=== PATIENT | female | born 1995 | race Hispanic/Latino ===

== ENCOUNTER 2017-07-01 14:41 | Emergency (ER) | payer MEDICAID ==
[2017-07-01 15:21] LABS: APPEARANCE,URINE CLOUDY (CLEAR); BILIRUBIN,URINE NEGATIVE (NEGATIVE); COLOR,URINE YELLOW (YELLOW); GLUCOSE, URINE (UA) NEGATIVE (NEGATIVE); KETONES,URINE NEGATIVE (NEGATIVE); LEUKOCYTE ESTERASE ,URINE TRACE (NEGATIVE); NITRATE,URINE NEGATIVE (NEGATIVE); OCCULT BLOOD,URINE NEGATIVE (NEGATIVE); PROTEIN,URINE NEGATIVE (NEGATIVE); UROBILINOGEN,URINE 0.2 mg/dL (0.2-1.0)
[2017-07-01 15:31] LABS: HCG,QUAL RESULT NEGATIVE (NEGATIVE)
[2017-07-01 16:06] LABS: BACTERIA,URINE Few /HPF (None Seen); RBC,URINE 0-1 /HPF (0-1)
[2017-07-01 16:08] LABS: AMORPHOUS SEDIMENT,UR Moderate /LPF (None Seen); SQUAMOUS EPITHELIAL CELL,UR Rare /HPF (0-2)
[2017-07-01] MEDS ORDERED: CEFTRIAXONE SODIUM 500 MG VIAL ONE (16:16)
[2017-07-01] MEDS ORDERED: LIDOCAINE HCL-MPF 1% 2ML VIAL ONE (16:16)
[2017-07-01] MEDS ORDERED: AZITHROMYCIN 250 MG TABLET PO ONE (16:17)
[2017-07-01] MEDS ORDERED: ONDANSETRON ODT 4 MG TAB ONE (16:17)
== END 2017-07-01 16:54 | disposition home or self-care (01) ==
LOC: EDH 14:41
DX: N39.0 Urinary tract infection, site not specified (principal); R10.30 Lower abdominal pain, unspecified; Z87.891 Personal history of nicotine dependence
CPT/HCPCS: 81001; 81025; 87486; 87797; 96372; 99284; J0696; J3490

== ENCOUNTER 2018-03-13 08:14 | Emergency (ER) | payer OTHER ==
[2018-03-13 09:10] LABS: BASOPHILS % (AUTO) 0.7 % (0.0-5.0); HEMATOCRIT 42.1 % (36-48); LYMPHOCYTES % (AUTO) 19.4 % (21.0-51.0); MEAN CORPUSCULAR HEMOGLOBIN 31.1 pg (27.0-33.0); MEAN CORPUSCULAR HGB CONC 33.3 g/dL (32.0-36.0); MEAN CORPUSCULAR VOLUME 93.4 fL (80-100); MONOCYTES % (AUTO) 6.4 % (3.0-13.0); NEUTROPHILS % (AUTO) 72.5 % (40.0-77.0); NUCLEATED RED BLOOD CELLS 0.1 % (0.0-0.19); PLATELET COUNT (AUTO) 146 K/uL (130-400); RED CELL DISTRIBUTION WIDTH 13.2 % (11.0-15.5); WHITE BLOOD COUNT (AUTO) 8.8 K/uL (4.8-10.8)
[2018-03-13 09:15] LABS: APPEARANCE,URINE Clear (CLEAR); BILIRUBIN,URINE Negative (NEGATIVE); COLOR,URINE Yellow (YELLOW); GLUCOSE, URINE (UA) Negative (NEGATIVE); KETONES,URINE Negative (NEGATIVE); LEUKOCYTE ESTERASE ,URINE Trace (NEGATIVE); NITRATE,URINE Negative (NEGATIVE); OCCULT BLOOD,URINE Negative (NEGATIVE); PROTEIN,URINE Negative (NEGATIVE)
[2018-03-13 09:27] LABS: CREATININE 0.9 mg/dL (0.5-1.5); POTASSIUM 3.7 mmol/L (3.5-5.1)
[2018-03-13 09:37] LABS: ALBUMIN 3.9 g/dL (3.5-5.0); BILIRUBIN,TOTAL 0.4 mg/dL (0.2-1.0); TOTAL PROTEIN, SERUM 7.7 g/dL (6.0-8.3)
[2018-03-13 09:50] LABS: BACTERIA,URINE Few /HPF (None Seen); RBC,URINE 0-1 /HPF (0-1)
== END 2018-03-13 11:03 | disposition home or self-care (01) ==
LOC: EDH 08:14
DX: O26.891 Other specified pregnancy related conditions, first trimester (principal); R10.9 Unspecified abdominal pain; R11.0 Nausea; O99.331 Smoking (tobacco) complicating pregnancy, first trimester; Z3A.01 Less than 8 weeks gestation of pregnancy
CPT/HCPCS: 36415; 80053; 81001; 82150; 83690; 84702; 85025; 87088

== ENCOUNTER 2019-01-30 17:26 | Emergency (ER) | payer OTHER ==
[2019-01-30] MEDS ORDERED: ONDANSETRON ODT 4 MG TAB ONE (17:53)
[2019-01-30 18:15] LABS: APPEARANCE,URINE Clear (CLEAR); BILIRUBIN,URINE Negative (NEGATIVE); COLOR,URINE Yellow (YELLOW); GLUCOSE, URINE (UA) Negative (NEGATIVE); KETONES,URINE Negative (NEGATIVE); LEUKOCYTE ESTERASE ,URINE Moderate (NEGATIVE); NITRATE,URINE Negative (NEGATIVE); OCCULT BLOOD,URINE Small (NEGATIVE); PROTEIN,URINE Trace mg/dL (NEGATIVE)
[2019-01-30 18:17] LABS: HCG,QUAL RESULT NEGATIVE (NEGATIVE)
[2019-01-30 18:36] LABS: BACTERIA,URINE Moderate /HPF (None Seen); MUCUS,URINE Few LPF (None Seen)
== END 2019-01-30 18:48 | disposition home or self-care (01) ==
LOC: EDH 17:26
DX: N39.0 Urinary tract infection, site not specified (principal); Z72.0 Tobacco use
CPT/HCPCS: 81001; 81025

== ENCOUNTER 2019-01-31 19:14 | Inpatient (IN) | payer OTHER ==
[~2019-01-31] VITALS: Ht 160 cm; Wt 54.0 kg
[2019-01-31] MEDS: SODIUM CHLORIDE 0.9% 1000ML 1,000 ML IV SCH (08:00)
[2019-01-31] MEDS ORDERED: SODIUM CHLORIDE 0.9% 1000ML 1,000 ML IV ONE ×3 (19:54→23:55)
[2019-01-31] MEDS ORDERED: CEFTRIAXONE SODIUM 2 GM VIAL ONE (19:54)
[2019-01-31 19:55] LABS: BASOPHILS % (AUTO) 0.1 % (0.0-5.0); HEMATOCRIT 39.1 % (36-48); LYMPHOCYTES % (AUTO) 9.1 % (21.0-51.0); MEAN CORPUSCULAR HEMOGLOBIN 33.1 pg (27.0-33.0); MEAN CORPUSCULAR HGB CONC 34.7 g/dL (32.0-36.0); MEAN CORPUSCULAR VOLUME 95.5 fL (79-99); MONOCYTES % (AUTO) 8.4 % (3.0-13.0); NEUTROPHILS % (AUTO) 82.4 % (40.0-77.0); NUCLEATED RED BLOOD CELLS 0.1 % (0.0-0.19); PLATELET COUNT (AUTO) 152 K/uL (130-400); RED CELL DISTRIBUTION WIDTH 12.4 % (11.0-15.5); WHITE BLOOD COUNT (AUTO) 14.1 K/uL (4.8-10.8)
[2019-01-31 19:59] LABS: APPEARANCE,URINE Clear (CLEAR); BILIRUBIN,URINE Negative (NEGATIVE); COLOR,URINE Yellow (YELLOW); GLUCOSE, URINE (UA) Negative (NEGATIVE); KETONES,URINE >=160 mg/dL (NEGATIVE); LEUKOCYTE ESTERASE ,URINE Moderate (NEGATIVE); NITRATE,URINE Negative (NEGATIVE); OCCULT BLOOD,URINE Moderate (NEGATIVE); PH,URINE 5.5 (5.0-8.0); PROTEIN,URINE Trace mg/dL (NEGATIVE)
[2019-01-31 20:12] LABS: INR 1.07 (0.85-1.15); PARTIAL THROMBOPLASTIN TIME 32.7 SEC (26.3-35.5); PROTHROMBIN TIME 11.2 SEC (9.6-11.6)
[2019-01-31 20:16] LABS: BACTERIA,URINE Moderate /HPF (None Seen); MUCUS,URINE Moderate LPF (None Seen)
[2019-01-31] MEDS ORDERED: IOHEXOL-350 75 ML VIAL IV ONE (20:28)
[2019-01-31 20:35] LABS: CARBON DIOXIDE 25 mmol/L (21-32); CHLORIDE 99 mmol/L (101-111); GLOMERULAR FILTR. RATE CALC 74 mL/min (>60); GLUCOSE,RANDOM 77 mg/dL (70-105); POTASSIUM 3.6 mmol/L (3.5-5.1); SODIUM SERUM 136 mmol/L (136-145); UREA NITROGEN, BLOOD 10 mg/dL (7-18)
[2019-01-31 20:48] LABS: ALANINE AMINOTRANSFERASE 23 U/L (12-78); ALBUMIN 3.7 g/dL (3.5-5.0); ASPARTATE AMINOTRANSFERASE 15 U/L (10-37); BILIRUBIN,TOTAL 0.8 mg/dL (0.2-1.0); CREATINE KINASE, TOTAL 41 U/L (21-232); MYOGLOBIN 25 ng/mL (10-92); TOTAL PROTEIN, SERUM 8.3 g/dL (6.0-8.3); TROPONIN I < 0.04 ng/mL (0.00-0.06)
[2019-01-31] MEDS ORDERED: ACETAMINOPHEN EXTRA STRENGTH 500 MG TABLET ONE (21:14)
[2019-01-31] MEDS ORDERED: LACTULOSE 20 GM/30 ML UDCUP PO PRN (22:00)
[2019-01-31] MEDS ORDERED: ONDANSETRON HCL 4 MG/2 ML VIAL IV PRN (22:00)
[2019-01-31] MEDS: CEFTRIAXONE SODIUM 1 GM IV SCH (22:00)
[2019-01-31] MEDS ORDERED: ACETAMINOPHEN 325 MG TAB PO PRN ×2 (22:00)
[2019-02-01 05:37] LABS: HEMATOCRIT 35.3 % (36-48); MEAN CORPUSCULAR HEMOGLOBIN 33.9 pg (27.0-33.0); MEAN CORPUSCULAR HGB CONC 34.9 g/dL (32.0-36.0); PLATELET COUNT (AUTO) 140 K/uL (130-400); RED BLOOD CELL COUNT(AUTO) 3.63 MIL/uL (4.00-5.50); RED CELL DISTRIBUTION WIDTH 12.6 % (11.0-15.5); WHITE BLOOD COUNT (AUTO) 9.9 K/uL (4.8-10.8)
[2019-02-01] MEDS: SODIUM CHLORIDE 0.9% 1000ML 1,000 ML IV SCH (05:54)
[2019-02-01] MEDS ORDERED: ACETAMINOPHEN 325 MG TAB ONE (05:56)
[2019-02-01 05:58] LABS: CREATININE 0.7 mg/dL (0.5-1.5); POTASSIUM 3.9 mmol/L (3.5-5.1)
[2019-02-01 06:08] LABS: LYMPHOCYTES % (MANUAL) 15 % (22-44); MAN.DIFF COMMENT-IMPRESSION MANUAL DIFFERENTIAL; MONOCYTES % (MANUAL) 11 % (2-9); SEGMENTED NEUTROPHILS % 74 % (40-70)
[2019-02-01 08:10] VITALS: BP 83/50
[2019-02-01] MEDS: FAMOTIDINE 20MG TAB 20 MG TAB PO SCH ×2 (08:57→21:43)
[2019-02-01 12:00] VITALS: BP 82/45
[2019-02-01 16:00] VITALS: BP 96/60
[2019-02-01 20:34] VITALS: BP 94/56
[2019-02-01] MEDS: CEFTRIAXONE SODIUM 1 GM IV SCH (21:43)
[2019-02-01 23:59] VITALS: BP 87/48
--- NOTE | 2019-02-02 03:17 | NUR ---
PT LEFT AMA, PER PATIENT SHE STATES SHE HAS A FAMILY EMERGENCY AND NEEDS TO LEAVE NOW, AGAINST MEDICAL ADVISE PATIENT EDUCATED AND AWARE OF RISKS INVOLVING LEAVING AMA. INCLUDING . PATIENT EDUCATED ON THIS. PATIENT STILL DECIDES TO LEAVE "AMA" . PT ENCOURAGED TO FOLLOW UP WITH PER PCP. IV REMOVED, CATHETER INTACT Addendum: 02/02/19 at 0319 by STEPHANIE ROTH RN THIS HAPPENED AT 01:00 02/02/19 SAYRA OLMSTEAD [facility] SUP NOTIFIED
== END 2019-02-02 01:08 | disposition left against medical advice (07) | DRG 872 ==
LOC: EDH 19:14 → EDHIP 19:15 → 4DH 02-01 08:10
PROVIDERS: ADMIT Internal Medicine; ATTEND Internal Medicine
DX: A41.9 Sepsis, unspecified organism (principal); N12 Tubulo-interstitial nephritis, not specified as acute or chronic; K59.00 Constipation, unspecified; K76.0 Fatty (change of) liver, not elsewhere classified; N83.201 Unspecified ovarian cyst, right side; N83.202 Unspecified ovarian cyst, left side; Q63.1 Lobulated, fused and horseshoe kidney
CPT/HCPCS: 36415; 71045; 74177; 76830; 80048; 80053; 81001; 81025; 82550; 83605; 83874; 84145; 84484; 85025; 85610; 85730; 87040; 87088; 87804; 93005; 99291; G0378; J0696; J7030; Q9967

== ENCOUNTER 2019-04-01 00:52 | Emergency (ER) | payer OTHER ==
[2019-04-01 01:24] LABS: APPEARANCE,URINE Cloudy (CLEAR); BILIRUBIN,URINE Negative (NEGATIVE); COLOR,URINE Yellow (YELLOW); GLUCOSE, URINE (UA) Negative (NEGATIVE); KETONES,URINE Negative (NEGATIVE); LEUKOCYTE ESTERASE ,URINE Large (NEGATIVE); NITRATE,URINE Negative (NEGATIVE); OCCULT BLOOD,URINE Trace (NEGATIVE); PROTEIN,URINE Negative (NEGATIVE); UROBILINOGEN,URINE 0.2 mg/dL (0.2-1.0)
[2019-04-01 01:27] LABS: HCG,QUAL RESULT NEGATIVE (NEGATIVE)
[2019-04-01 01:31] LABS: BACTERIA,URINE None Seen /HPF (None Seen); RBC,URINE 0-1 /HPF (0-1); SQUAMOUS EPITHELIAL CELL,UR Moderate /HPF (0-2)
== END 2019-04-01 01:51 | disposition left against medical advice (07) ==
LOC: EDH 00:52
DX: R10.30 Lower abdominal pain, unspecified (principal); R51 Headache; R11.0 Nausea; R06.02 Shortness of breath; Z72.0 Tobacco use
CPT/HCPCS: 81001; 81025

== ENCOUNTER 2020-01-26 17:59 | Emergency (ER) | payer OTHER ==
[2020-01-26] MEDS ORDERED: CEPHALEXIN 500 MG CAPSULE ONE (18:33)
[2020-01-26] MEDS ORDERED: TETANUS/DIPHTHERIA TOXOID [ADULT] 0.5 ML VIAL IM ONE (18:33)
== END 2020-01-26 18:53 | disposition home or self-care (01) ==
LOC: EDH 17:59
DX: S51.811A Laceration without foreign body of right forearm, initial encounter (principal); X58.XXXA Exposure to other specified factors, initial encounter; Y93.89 Activity, other specified; Y92.89 Other specified places as the place of occurrence of the external cause; Y99.8 Other external cause status
CPT/HCPCS: 90471; 90714

== ENCOUNTER 2020-06-28 21:19 | Emergency (ER) | payer OTHER ==
[2020-06-28] MEDS ORDERED: ACETAMINOPHEN 500 MG TABLET ONE (21:54)
[2020-06-28 22:05] LABS: HCG,QUAL RESULT POSITIVE (NEGATIVE)
[2020-06-28 22:09] LABS: APPEARANCE,URINE Cloudy (CLEAR); BILIRUBIN,URINE Small (NEGATIVE); COLOR,URINE Dark Yellow (YELLOW); GLUCOSE, URINE (UA) Negative (NEGATIVE); KETONES,URINE 15 mg/dL (NEGATIVE); LEUKOCYTE ESTERASE ,URINE Moderate (NEGATIVE); NITRATE,URINE Negative (NEGATIVE); OCCULT BLOOD,URINE Large (NEGATIVE); PH,URINE 5.5 (5.0-8.0); PROTEIN,URINE POS 1+ mg/dL (NEGATIVE)
[2020-06-28 22:16] LABS: BASOPHILS % (AUTO) 0.2 % (0.0-5.0); EOSINOPHILS % (AUTO) 0.2 % (0.0-8.0); HEMATOCRIT 37.2 % (36-48); LYMPHOCYTES % (AUTO) 5.3 % (21.0-51.0); MEAN CORPUSCULAR HEMOGLOBIN 33.9 pg (27.0-33.0); MEAN CORPUSCULAR HGB CONC 35.2 g/dL (32.0-36.0); MEAN CORPUSCULAR VOLUME 96.4 fL (79-99); NEUTROPHILS % (AUTO) 88.8 % (40.0-77.0); PLATELET COUNT (AUTO) 118 K/uL (130-400); RED BLOOD CELL COUNT(AUTO) 3.86 MIL/uL (4.00-5.50); RED CELL DISTRIBUTION WIDTH 11.7 % (11.0-15.5); WHITE BLOOD COUNT (AUTO) 9.8 K/uL (4.8-10.8)
[2020-06-28 22:19] LABS: BACTERIA,URINE Few /HPF (None Seen)
[2020-06-28 22:31] LABS: CREATININE 0.8 mg/dL (0.5-1.5); POTASSIUM 3.2 mmol/L (3.5-5.1)
[2020-06-28 22:36] LABS: ALBUMIN 3.5 g/dL (3.5-5.0); BILIRUBIN,TOTAL 0.5 mg/dL (0.2-1.0); TOTAL PROTEIN, SERUM 7.1 g/dL (6.0-8.3)
[2020-06-28] MEDS ORDERED: CEFTRIAXONE 1G VIAL ONE (23:39)
[2020-07-04 11:12] LABS: CHLAMYDIA DNA N.A.AMPLIFY Positive (Negative)
== END 2020-06-29 01:13 | disposition home or self-care (01) ==
LOC: EDH 21:19
DX: O23.40 Unspecified infection of urinary tract in pregnancy, unspecified trimester (principal); O03.9 Complete or unspecified spontaneous abortion without complication; Z3A.00 Weeks of gestation of pregnancy not specified; Z72.0 Tobacco use
CPT/HCPCS: 36415; 76801; 80053; 81001; 81025; 83605; 84145; 84702; 85025; 86701; 87040 ×2; 87088; 87210; 87390; 87486; 87797; 96361; 96365; 99284; J0696

== ENCOUNTER 2020-07-01 18:49 | Emergency (ER) | payer OTHER | END 2020-07-01 20:11 | disposition home or self-care (01) | LOC: EDH 18:49 | DX: O03.4 Incomplete spontaneous abortion without complication (principal); Z72.0 Tobacco use | CPT/HCPCS: 36415; 84702 ==

== ENCOUNTER 2021-09-11 18:16 | Emergency (ER) | payer OTHER ==
[~2021-09-11] VITALS: Ht 160 cm; Wt 49.9 kg
[2021-09-11 18:50] LABS: APPEARANCE,URINE SL CLOUDY (CLEAR); BILIRUBIN,URINE NEGATIVE (NEGATIVE); COLOR,URINE YELLOW (YELLOW); GLUCOSE, URINE (UA) NEGATIVE (NEGATIVE); KETONES,URINE NEGATIVE (NEGATIVE); LEUKOCYTE ESTERASE ,URINE TRACE (NEGATIVE); NITRATE,URINE NEGATIVE (NEGATIVE); OCCULT BLOOD,URINE TRACE-INTACT (NEGATIVE); PROTEIN,URINE NEGATIVE (NEGATIVE); UROBILINOGEN,URINE 0.2 mg/dL (0.2-1.0)
[2021-09-11] MEDS ORDERED: ACETAMINOPHEN 500 MG TABLET PO ONE (19:00)
[2021-09-11] MEDS ORDERED: GUAIFENESIN-CODEINE 5 ML SYRUP PO ONE (19:00)
[2021-09-11 19:03] LABS: HCG,QUAL RESULT NEGATIVE (NEGATIVE)
[2021-09-11 19:31] LABS: BACTERIA,URINE Few /HPF (None Seen); SQUAMOUS EPITHELIAL CELL,UR Few /HPF (0-2)
[2021-09-11] MEDS ORDERED: D-ME1POW16 PO (19:38)
[2021-09-11] MEDS ORDERED: CEPH500B PO (19:38)
[2021-09-11] MEDS ORDERED: CEFTRIAXONE 1G VIAL IM ONE (20:00)
[2021-09-11] MEDS ORDERED: CEFTRIAXONE 1G VIAL ONE (20:00)
[2021-09-11 20:11] VITALS: BP 128/64
== END 2021-09-11 20:16 | disposition home or self-care (01) ==
LOC: EDH 18:16
DX: J06.9 Acute upper respiratory infection, unspecified (principal); N39.0 Urinary tract infection, site not specified; Z20.822 Contact with and (suspected) exposure to COVID-19
CPT/HCPCS: 71045; 81001; 81025; 87077; 87088; 87186; 87635; 87804 ×2; 96372; 99284; C9803; J0696

== ENCOUNTER 2021-11-07 23:41 | Emergency (ER) | payer OTHER ==
[~2021-11-07] VITALS: Ht 160 cm; Wt 3.0 kg
[~2021-11-07 23:41] MED LIST: CEPH500B PO; D-ME1POW16 PO
[2021-11-08 00:16] LABS: APPEARANCE,URINE CLEAR (CLEAR); BILIRUBIN,URINE NEGATIVE (NEGATIVE); COLOR,URINE YELLOW (YELLOW); GLUCOSE, URINE (UA) NEGATIVE (NEGATIVE); KETONES,URINE NEGATIVE (NEGATIVE); LEUKOCYTE ESTERASE ,URINE TRACE (NEGATIVE); NITRATE,URINE NEGATIVE (NEGATIVE); OCCULT BLOOD,URINE NEGATIVE (NEGATIVE); PH,URINE 6.5 (5.0-8.0); PROTEIN,URINE NEGATIVE (NEGATIVE); UROBILINOGEN,URINE 0.2 mg/dL (0.2-1.0)
[2021-11-08 00:18] LABS: HCG,QUALITATIVE URINE POSITIVE (NEGATIVE)
[2021-11-08] MEDS ORDERED: ACETAMINOPHEN 500 MG TABLET PO ONE (00:30)
[2021-11-08 00:43] LABS: BACTERIA,URINE Rare /HPF (None Seen); RBC,URINE 0-1 /HPF (0-1); SQUAMOUS EPITHELIAL CELL,UR 0-2 /HPF (0-2)
[2021-11-08 00:54] LABS: CREATININE 0.8 mg/dL (0.5-1.5); POTASSIUM 3.1 mmol/L (3.5-5.1)
[2021-11-08 01:00] LABS: BASOPHILS % (AUTO) 0.5 % (0.0-5.0); EOSINOPHILS % (AUTO) 2.1 % (0.0-8.0); HEMATOCRIT 38.4 % (36-48); LYMPHOCYTES % (AUTO) 25.2 % (21.0-51.0); MEAN CORPUSCULAR HEMOGLOBIN 34.3 pg (27.0-33.0); MEAN CORPUSCULAR HGB CONC 35.4 g/dL (32.0-36.0); MONOCYTES % (AUTO) 7.4 % (3.0-13.0); NEUTROPHILS % (AUTO) 64.7 % (40.0-77.0); PLATELET COUNT (AUTO) 124 K/uL (130-400); RED BLOOD CELL COUNT(AUTO) 3.96 MIL/uL (4.00-5.50); RED CELL DISTRIBUTION WIDTH 11.7 % (11.0-15.5); WHITE BLOOD COUNT (AUTO) 8.5 K/uL (4.8-10.8)
[2021-11-08 01:05] LABS: ALBUMIN 3.6 g/dL (3.5-5.0); TOTAL PROTEIN, SERUM 6.8 g/dL (6.0-8.3)
[2021-11-08] MEDS ORDERED: KCL 20 MEQ ERTAB PO ONE (01:30)
[2021-11-08] MEDS ORDERED: PREN1CAP37 PO (01:43)
[2021-11-08 01:56] VITALS: BP 104/57
== END 2021-11-08 01:59 | disposition home or self-care (01) ==
LOC: EDH 23:41
DX: O99.111 Other diseases of the blood and blood-forming organs and certain disorders involving the immune mechanism complicating pregnancy, first trimester (principal); D69.6 Thrombocytopenia, unspecified; O99.891 Other specified diseases and conditions complicating pregnancy; E87.6 Hypokalemia; R51.9 Headache, unspecified; M54.50 Low back pain, unspecified; Z3A.01 Less than 8 weeks gestation of pregnancy; Z20.822 Contact with and (suspected) exposure to COVID-19
CPT/HCPCS: 99283; 87635; 80053; 84702; 85025; 81001; 81025; 36415; C9803

== ENCOUNTER → 2022-12-30 | Emergency (ER) | payer MEDICAID ==
[~2022-12-30] VITALS: Ht 160 cm; Wt 54.9 kg
[~2022-12-30] MED LIST changes: +PREN1CAP37 PO
[2022-12-31] VITALS: BP 108/62; PULSE 95; RESP 18
== END ==
LOC: EDH 23:58
DX: R10.9 Unspecified abdominal pain (principal); Z53.21 Procedure and treatment not carried out due to patient leaving prior to being seen by health care provider
CPT/HCPCS: 99281

== ENCOUNTER 2023-01-19 11:53 | Emergency (ER) | payer MEDICAID ==
[~2023-01-19] VITALS: Ht 160 cm; Wt 55.8 kg
[2023-01-19 12:18] LABS: BASOPHILS # (AUTO) 0.05 K/uL (0.00-0.20); BASOPHILS % (AUTO) 0.4 % (0.0-5.0); EOSINOPHILS # (AUTO) 0.13 K/uL (0.00-0.70); HEMATOCRIT 42.9 % (36-48); IMMATURE GRANULOCYTE ABSOLUTE 0.05 K/uL (0-1); LYMPHOCYTES # (AUTO) 2.1 K/uL (1.0-4.8); LYMPHOCYTES % (AUTO) 16.3 % (21.0-51.0); MEAN CORPUSCULAR HEMOGLOBIN 31.8 pg (27.0-33.0); MEAN CORPUSCULAR HGB CONC 34.3 g/dL (32.0-36.0); MEAN CORPUSCULAR VOLUME 92.9 fL (79-99); MONOCYTES # (AUTO) 0.6 K/uL (0.1-1.0); MONOCYTES % (AUTO) 4.3 % (3.0-13.0); NEUTROPHILS % (AUTO) 77.6 % (40.0-77.0); PLATELET COUNT (AUTO) 176 K/uL (130-400); RED BLOOD CELL COUNT(AUTO) 4.62 MIL/uL (4.00-5.50); WHITE BLOOD COUNT (AUTO) 12.9 K/uL (4.8-10.8)
[2023-01-19 12:46] LABS: CREATININE 0.8 mg/dL (0.5-1.5); POTASSIUM 3.2 mmol/L (3.5-5.1)
[2023-01-19 12:51] LABS: HCG,QUALITATIVE URINE NEGATIVE (NEGATIVE)
[2023-01-19 12:52] LABS: APPEARANCE,URINE SL CLOUDY (CLEAR); BILIRUBIN,URINE SMALL mg/dL (NEGATIVE); COLOR,URINE YELLOW (YELLOW); GLUCOSE, URINE (UA) NEGATIVE (NEGATIVE); KETONES,URINE NEGATIVE (NEGATIVE); LEUKOCYTE ESTERASE ,URINE TRACE Leu/uL (NEGATIVE); NITRATE,URINE NEGATIVE (NEGATIVE); OCCULT BLOOD,URINE NEGATIVE (NEGATIVE); PH,URINE 5.5 (5.0-8.0); PROTEIN,URINE TRACE mg/dL (NEGATIVE); UROBILINOGEN,URINE 0.2 mg/dL (0.2-1.0)
[2023-01-19 13:00] LABS: ALBUMIN 4.1 g/dL (3.5-5.0); BILIRUBIN,TOTAL 0.5 mg/dL (0.2-1.0); TOTAL PROTEIN, SERUM 7.9 g/dL (6.0-8.3)
[2023-01-19 13:03] LABS: ADD UA MICROSCOPIC YES
[2023-01-19 13:05] LABS: BACTERIA,URINE Moderate /HPF (None Seen); SQUAMOUS EPITHELIAL CELL,UR Few /HPF (0-2); WBC,URINE 0-1 /HPF (0-1)
[2023-01-19] MEDS ORDERED: HYOSCYAMINE SULFATE 0.125 MG TAB.SUBL SL ONE (13:30)
[2023-01-19] MEDS ORDERED: ONDANSETRON 4MG INJ IVP ONE (13:30)
[2023-01-19] MEDS ORDERED: KETOROLAC 15MG/ML VIAL (15MG/ML) IV ONE (13:30)
[2023-01-19] MEDS ORDERED: 0.9% NACL 500ML IV.SOLN 500 ML IV ONE (13:30)
[2023-01-19 13:57] VITALS: BP 101/64; PULSE 71; RESP 14; O2SAT 99
[2023-01-19] MEDS ORDERED: KCL 20 MEQ ERTAB PO ONE (14:30)
[2023-01-19] MEDS ORDERED: ONDA4TAB10 PO (14:43)
[2023-01-19] MEDS ORDERED: DIPH1TAB PO (14:43)
== END 2023-01-19 14:50 | disposition home or self-care (01) ==
LOC: EDH 11:53
DX: E87.6 Hypokalemia (principal); A08.4 Viral intestinal infection, unspecified
CPT/HCPCS: 99284; 96374; 96375; 80053; 84703; 83690; 85025; 87088; 81001; 81025; 36415; J2405; J1885

== ENCOUNTER 2023-06-19 20:22 | Emergency (ER) | payer MEDICAID, OTHER ==
[~2023-06-19] VITALS: Ht 160 cm; Wt 56.7 kg
[~2023-06-19 20:22] MED LIST changes: +DIPH1TAB PO; +ONDA4TAB10 PO
[2023-06-19 21:27] LABS: RAPID GROUP A STREP negative (NEGATIVE)
[2023-06-19 21:29] LABS: INFLUENZA TYPE A Negative For Type A (NEGATIVE); INFLUENZA TYPE B Negative For Type B (NEGATIVE)
[2023-06-19 21:37] LABS: SARS-CoV-2, RNA, NAAT NEGATIVE SARS CoV-2 (NEGATIVE)
[2023-06-19 22:02] LABS: APPEARANCE,URINE CLEAR (CLEAR); BILIRUBIN,URINE NEGATIVE (NEGATIVE); COLOR,URINE LIGHT-YELLOW (YELLOW); GLUCOSE, URINE (UA) NEGATIVE (NEGATIVE); KETONES,URINE NEGATIVE (NEGATIVE); LEUKOCYTE ESTERASE ,URINE 75 Leu/uL (NEGATIVE); NITRATE,URINE NEGATIVE (NEGATIVE); OCCULT BLOOD,URINE NEGATIVE (NEGATIVE); PH,URINE 5.5 (5.0-8.0); PROTEIN,URINE NEGATIVE (NEGATIVE); UROBILINOGEN,URINE 0.2 mg/dL (0.2-1.0)
[2023-06-19 22:03] LABS: ADD UA MICROSCOPIC YES
[2023-06-19 22:04] LABS: HCG,QUALITATIVE URINE NEGATIVE (NEGATIVE)
[2023-06-19 22:10] LABS: MUCUS,URINE RARE LPF (None Seen); RBC,URINE 0-1 /HPF (0-1); SQUAMOUS EPITHELIAL CELL,UR RARE /HPF (0-2)
[2023-06-19] MEDS ORDERED: IPRA6S NASAL (23:31)
[2023-06-19] MEDS ORDERED: LEVO5TAB29 PO (23:31)
[2023-06-19] MEDS ORDERED: IBUP-2070 PO (23:31)
[2023-06-19 23:40] VITALS: BP 132/74; PULSE 88; RESP 20; O2SAT 100
== END 2023-06-19 23:42 | disposition home or self-care (01) ==
LOC: EDH 20:22
DX: J32.9 Chronic sinusitis, unspecified (principal); R09.82 Postnasal drip; Z20.822 Contact with and (suspected) exposure to COVID-19; Z79.899 Other long term (current) drug therapy
CPT/HCPCS: 81001; 81025; 87077; 87088; 87186; 87635; 87804; 87880

== ENCOUNTER 2023-10-12 21:03 | Emergency (ER) | payer MEDICAID, OTHER ==
[~2023-10-12] VITALS: Ht 160 cm; Wt 54.4 kg
[~2023-10-12 21:03] MED LIST changes: -CEPH500B PO; -D-ME1POW16 PO; -DIPH1TAB PO; +IBUP-2070 PO; +IPRA6S NASAL; +LEVO5TAB29 PO; -ONDA4TAB10 PO; -PREN1CAP37 PO
[2023-10-12 21:52] LABS: BASOPHILS # (AUTO) 0.04 K/uL (0.00-0.20); BASOPHILS % (AUTO) 0.4 % (0.0-5.0); EOSINOPHILS # (AUTO) 0.13 K/uL (0.00-0.70); EOSINOPHILS % (AUTO) 1.4 % (0.0-8.0); HEMATOCRIT 38.9 % (36-48); IMMATURE GRANULOCYTE ABSOLUTE 0.03 K/uL (0-1); LYMPHOCYTES # (AUTO) 1.7 K/uL (1.0-4.8); MEAN CORPUSCULAR HEMOGLOBIN 32.5 pg (27.0-33.0); MEAN CORPUSCULAR HGB CONC 34.2 g/dL (32.0-36.0); MEAN CORPUSCULAR VOLUME 95.1 fL (79-99); MONOCYTES # (AUTO) 0.6 K/uL (0.1-1.0); NEUTROPHILS # (AUTO) 6.6 K/uL (1.8-7.7); NEUTROPHILS % (AUTO) 71.9 % (40.0-77.0); PLATELET COUNT (AUTO) 151 K/uL (130-400); RED BLOOD CELL COUNT(AUTO) 4.09 MIL/uL (4.00-5.50); RED CELL DISTRIBUTION WIDTH 11.9 % (11.0-15.5); WHITE BLOOD COUNT (AUTO) 9.1 K/uL (4.8-10.8)
[2023-10-12 21:57] LABS: ADD UA MICROSCOPIC YES; APPEARANCE,URINE CLEAR (CLEAR); BILIRUBIN,URINE NEGATIVE (NEGATIVE); COLOR,URINE LIGHT-YELLOW (YELLOW); GLUCOSE, URINE (UA) NEGATIVE (NEGATIVE); KETONES,URINE NEGATIVE (NEGATIVE); LEUKOCYTE ESTERASE ,URINE 75 Leu/uL (NEGATIVE); NITRATE,URINE NEGATIVE (NEGATIVE); OCCULT BLOOD,URINE NEGATIVE (NEGATIVE); PROTEIN,URINE NEGATIVE (NEGATIVE)
[2023-10-12 21:58] VITALS: BP 128/76; PULSE 86; RESP 18; O2SAT 98
[2023-10-12 21:59] LABS: MUCUS,URINE RARE LPF (None Seen); SQUAMOUS EPITHELIAL CELL,UR FEW /HPF (0-2)
[2023-10-12 22:01] LABS: HCG,QUALITATIVE URINE NEGATIVE (NEGATIVE)
[2023-10-12 22:03] LABS: CREATININE 0.7 mg/dL (0.5-1.0); POTASSIUM 3.8 mmol/L (3.5-5.1)
[2023-10-12 22:07] LABS: ALBUMIN 3.4 g/dL (3.5-5.0); BILIRUBIN,TOTAL 0.4 mg/dL (0.2-1.0); TOTAL PROTEIN, SERUM 6.5 g/dL (6.0-8.3)
[2023-10-12] MEDS: SULFAMETHOX-TMP DS 800/160 TAB PO SCH (23:25)
[2023-10-12] MEDS ORDERED: SULF1TAB42 PO (23:41)
== END 2023-10-12 23:57 | disposition home or self-care (01) ==
LOC: EDH 21:03
DX: N39.0 Urinary tract infection, site not specified (principal); Z79.899 Other long term (current) drug therapy
CPT/HCPCS: 36415; 80053; 81001; 81025; 83690; 85025; 87086

== ENCOUNTER 2023-11-19 02:00 | Emergency (ER) | payer SELFPAY ==
[~2023-11-19] VITALS: Ht 160 cm; Wt 56.7 kg
[~2023-11-19 02:00] MED LIST changes: +SULF1TAB42 PO
[2023-11-19 02:21] VITALS: BP 124/88; PULSE 66; RESP 20; TEMP 98.6; O2SAT 99
[2023-11-19 02:21] LABS: APPEARANCE,URINE CLEAR (CLEAR); BILIRUBIN,URINE NEGATIVE (NEGATIVE); COLOR,URINE COLORLESS (YELLOW); GLUCOSE, URINE (UA) NEGATIVE (NEGATIVE); KETONES,URINE NEGATIVE (NEGATIVE); LEUKOCYTE ESTERASE ,URINE 500 Leu/uL (NEGATIVE); NITRATE,URINE NEGATIVE (NEGATIVE); OCCULT BLOOD,URINE NEGATIVE (NEGATIVE); PH,URINE 6.5 (5.0-8.0); PROTEIN,URINE NEGATIVE (NEGATIVE); UROBILINOGEN,URINE 0.2 mg/dL (0.2-1.0)
[2023-11-19 02:24] LABS: ADD UA MICROSCOPIC YES
[2023-11-19 02:28] LABS: BACTERIA,URINE RARE /HPF (None Seen); SQUAMOUS EPITHELIAL CELL,UR RARE /HPF (0-2)
[2023-11-19] MEDS ORDERED: SULF1TAB42 PO (02:38)
[2023-11-19] MEDS: sulfaMETHOX-TMP DS 800/160 TAB PO ONE (02:42)
== END 2023-11-19 02:44 | disposition home or self-care (01) ==
LOC: EDH 02:00
DX: N39.0 Urinary tract infection, site not specified (principal); Z79.899 Other long term (current) drug therapy
CPT/HCPCS: 81001; 87086; 87186

== ENCOUNTER 2024-05-09 23:20 | Emergency (ER) | payer SELFPAY ==
[~2024-05-09] VITALS: Ht 160 cm; Wt 56.7 kg
--- NOTE | 2024-05-09 23:27 | NUR ---
PT CARE ASSUMED AT THIS TIME
--- NOTE | 2024-05-09 23:47 | ERN ---
General Chief Complaint: Painful Urination Stated Complaint: C/O PAIN WITH BURNING WHEN VOIDING Time Seen by MD: 23:22 History of Present Illness Initial Comments The patient is a 28-year-old female with no significant past medical history, who presented to the emergency room with a 1 day history of burning sensation during urination, increased urinary frequency and urgency. She also reports lower back pain which gets better when she voids. She denies any fever, chills, nausea, vomiting, flank pain or hematuria. She has had similar symptoms in the past and was treated for urinary tract infection. She has no known history of kidney stones or recurrent UTIs. She denies any new sexual partners, or vaginal discharge. No recent antibiotic use or hospitalization. She has no known allergies. Allergies: Coded Allergies: No Known Allergies (Unverified Allergy, Unknown, 09/22/18) Home Meds Active Scripts Nitrofurantoin Monohyd/M-Cryst (Macrobid 100 mg Capsule) 100 Mg Capsule, 1 CAP PO BID for 7 Days, #14 CAP 0 Refills Prov:ANTONETTE VEGA MD 05/10/24 Doxycycline Hyclate (Doxycycline Hyclate) 100 Mg Tablet.dr, 1 TAB PO BID for 7 Days, #14 TAB 0 Refills Prov:ANTONETTE VEGA MD 05/10/24 Sulfamethoxazole/Trimethoprim (Bactrim Ds Tablet) 800 Mg-160 Mg Tablet, 1 TAB PO Q12H for UTI for 7 Days, #14 TAB Prov:HAL STEVENSON MD 11/19/23 Sulfamethoxazole/Trimethoprim (Bactrim Ds Tablet) 800 Mg-160 Mg Tablet, 1 TAB PO q12, #15 TAB Prov:HAL STEVENSON MD 10/12/23 Levocetirizine Dihydrochloride (Xyzal) 5 Mg Tablet, 5 MG PO DAILY for 30 Days, # 30 TAB Prov:NOREEN JAUREGUI 06/19/23 Ibuprofen (Ibuprofen) 600 Mg Tablet, 600 MG PO TIDP PRN for PAIN for 7 Days, #12 TAB Prov:NOREEN JAUREGUI 06/19/23 Ipratropium [place] (Atrovent 0.06% Nasal [place]) 42 Mcg (0.06 %) [place], 1 SPRAY NASAL TIDP PRN for nasal congestion for 4 Days, #1 UNIT 1-2 sprays each nostril for congestion Prov:NOREEN JAUREGUI 06/19/23 Past Medical History Past Medical History: No Pertinent History Past Surgical History: None Family History Family History: Negative Social History Social History: Negative Female( History) LMP: Apr 28, 2024 : 3 Para: 3 ROS Dictation Constitutional: No appetite loss, No fevers, chills , No night sweats, No weakness, fatigue Eye: No vision change, No redness, pain or discharge ENT: No hearing loss, ear pain or discharge, No nose bleeds, No sore throat, Neck: No swelling. pain or stiffness Respiratory: No cough, shortness of breath, wheezing Cardiovascular: No chest pain,, palpitations, dyspnea, No edema Gastrointestinal: No abdominal pain, No nausea, vomiting, No diarrhea, constipation Genitourinary: Painful urination, frequency or urgency Musculoskeletal: No joint pain, muscle pain, swelling or stiffness Neurological: No numbness, tingling, No weakness, tremors or seizures Psychiatric: : No depression, No anxiety, No sleep disturbance, No Memory changes Lymphatic: No easy bruising, No bleeding tendencies , No swollen lymph nodes A 13-point Review of Systems was assessed, all of which are negative except for HPI or as indicated above. Physical Exam Physical Exam Dictation General: Alert & Oriented, No acute distress. EENT: No conjunctival redness or discharge noted Tympanic membranes are clear, Normal hearing, Oral mucosa is moist, No pharyngeal erythema, No nasal discharge, No oral lesions. Neck: Non-tender, No jugular vein distention, No lymphadenopathy, No thyromegaly, Supple. Respiratory: Lungs are clear to auscultation, Respirations are non-labored, Breath sounds are equal, No chest wall tenderness, _. Cardiovascular: Normal rate, Normal rhythm, No murmur, Good pulses equal in all extremities, Normal peripheral perfusion, No edema. Gastrointestinal: Soft, Non-tender, Non-distended, Normal bowel sounds, No organomegaly, _. Musculoskeletal: Normal range of motion, Normal strength, No tenderness, No swelling, No deformity, Normal gait. Integumentary: Warm, Dry, [place], Intact, No pallor, No rash. Neurologic: Alert, Oriented x4, Normal sensory, No focal defects Psychiatric: Cooperative, Appropriate mood & affect, Normal judgement, Non- suicidal. Results Laboratory and Microbiology Lab and Micro Result Laboratory Tests Test 05/09/24 23:25 05/09/24 23:50 Urine Color LIGHT-YELLOW (YELLOW) Urine Appearance CLOUDY (CLEAR) H Urine pH 5.5 (5.0-8.0) Urine Specific [place] 1.011 (1.001-1.031) Urine Protein NEGATIVE mg/dL (NEGATIVE) Urine Glucose (UA) NEGATIVE mg/dL (NEGATIVE) Urine Ketones NEGATIVE mg/dL (NEGATIVE) Urine Occult Blood +- (TRACE) (NEGATIVE) H Urine Nitrate NEGATIVE (NEGATIVE) Urine Bilirubin NEGATIVE mg/dL (NEGATIVE) Urine Urobilinogen 0.2 mg/dL (0.2-1.0) Urine Leukocyte Esterase 500 [place]/uL (NEGATIVE) H Urine RBC 11-25 /HPF (0-1) H Urine WBC TNTC /HPF (0-1) H Urine Squamous Epithelial Cells FEW /HPF (0-2) Urine Bacteria RARE /HPF (None Seen) White Blood Count 8.8 K/uL (4.8-10.8) Red Blood Count 4.06 MIL/uL (4.00-5.50) Hemoglobin 13.4 g/dL (12.0-16.0) Hematocrit 39.7 % (36-48) Mean Corpuscular Volume 97.8 fL (79-99) Mean Corpuscular Hemoglobin 33.0 pg (27.0-33.0) Mean Corpuscular Hemoglobin Concent 33.8 g/dL (32.0-36.0) Red Cell Distribution Width 11.7 % (11.0-15.5) Platelet Count 147 K/uL (130-400) Mean Platelet Volume 12.5 fL (7.5-10.5) H Immature Granulocyte % (Auto) 0.2 % (0-1) Neutrophils (%) (Auto) 59.8 % (40.0-77.0) Lymphocytes (%) (Auto) 29.1 % (21.0-51.0) Monocytes (%) (Auto) 8.0 % (3.0-13.0) Eosinophils (%) (Auto) 2.3 % (0.0-8.0) Basophils (%) (Auto) 0.6 % (0.0-5.0) Neutrophils # (Auto) 5.3 K/uL (1.8-7.7) Lymphocytes # (Auto) 2.6 K/uL (1.0-4.8) Monocytes # (Auto) 0.7 K/uL (0.1-1.0) Eosinophils # (Auto) 0.20 K/uL (0.00-0.70) Basophils # (Auto) 0.05 K/uL (0.00-0.20) Absolute Immature Granulocyte (auto 0.02 K/uL (0-1) Nucleated Red Blood Cells 0.0 % (0.0-0.19) Sodium Level 137 mmol/L (136-145) Potassium Level 3.4 mmol/L (3.5-5.1) L Chloride Level 104 mmol/L (101-111) Carbon Dioxide Level 28 mmol/L (21-32) Blood Urea Nitrogen 7 mg/dL (7-18) Creatinine 0.7 mg/dL (0.5-1.0) Glomerular Filtration Rate Calc 121 mL/min (>90) Random Glucose 80 mg/dL (70-105) Total Calcium 8.6 mg/dL (8.5-10.1) Serum Test, Qualitative NEGATIVE (NEGATIVE) MDM Potential differential diagnoses include: * Potential differential diagnoses include: * Urinary tract infection * Assessment: CBC was done in order to to rule any anemia, infections and to evaluate the overall health of the patient. BMP was ordered in order to assess. various electrolytes, kidney function ,protein levels and blood glucose levels,Urinalysis to rule out any urinary tract infection. I will re-evaluate the patient after treatment and diagnostic exams have returned to determine whether they require further testing, can be safely discharged home, or need admission for further treatment and evaluation. Given the social determinants of health affecting care, including literacy, access to medical care, prescription drug management, and taqt-tdc-odilayu drugs, I will ensure that treatment plans are tailored accordingly. Revaluation : Patient is alert and oriented. States she feels a lot better . Disposition: Will discharge patient at this time with prescription of ...... PO and instructions to follow up with PCP for further evaluation and treatment. Attestation: Patient's case was discussed with the ER MD. Reviewed the documentation, medical decision making and treatment plan. Agrees with the findings and plan of care. ED Course Orders Procedure Category Date Status Time Cbc With Differential LAB 05/09/24 Complete 23:23 Basic Metabolic Panel LAB 05/09/24 Complete 23:23 Urinalysis Profile LAB 05/09/24 Complete 23:23 Testing, LAB 05/09/24 Complete Serum Hcg 23:29 Culture Urine BETH 05/09/24 Complete 23:55 Ceftriaxone 1g Vial PHA 05/10/24 Complete (Rocephine 1g Inj) 00:00 Vital Signs Date Time Temp Pulse Resp B/P (MAP) Pulse Ox O2 Delivery O2 Flow Rate FiO2 05/10/24 00:46 98.2 80 17 107/62 100 Room Air* 0 21 05/10/24 00:20 86 17 101/69 98 Room Air* 0 21 05/09/24 23:33 97.9 86 16 96/57 100 Room Air* 0 21 05/09/24 23:22 98.2 84 20 115/62 98 Room Air DX & DISP Disposition: Discharge Departure Impression: Primary Impression: UTI (urinary tract infection) Critical Time: 30 minutes Condition: Stable Scripts Nitrofurantoin Monohyd/M-Cryst (Macrobid 100 mg Capsule) 100 Mg Capsule 1 CAP PO BID for 7 Days, #14 CAP 0 Refills Prov: ANTONETTE VEGA MD 05/10/24 Doxycycline Hyclate (Doxycycline Hyclate) 100 Mg Tablet.dr 1 TAB PO BID for 7 Days, #14 TAB 0 Refills Prov: ANTONETTE VEGA MD 05/10/24 Additional Instructions: Discharge Instructions: *Follow up with your primary care physician in 2 - 3 days after discharge. *Continue all medications as prescribed. Do not discontinue or change dosages without consulting your PCP. *Gradually resume normal activities as tolerated. *Continue a balanced diet . Reduce salt intake to help manage BP. *Seek immediate medical attention if you experience chest pain, SOB or severe headache. *Smoking cessation is strongly advised. Resources for quitting smoking are available upon request. Referrals: SELF,REFERRAL (PCP) I WAS PRESENT AND PARTICIPATED IN THE CARE OF THIS PATIENT ALONGSIDE WITH THE RESIDENT PHYSICIAN. I HAVE REVIEWED AND PERSONALLY MADE AND APPROVED THE MANAGEMENT PLAN THAT IS DOCUMENTED IN THE NOTE BY MYSELF WITH THE RESIDENT PHYSICIAN. I ACKNOWLEDGED FOR RESPONSIBILITY FOR THE PATIENT'S MANAGEMENT PLAN. ANTONETTE VEGA MD May 09, 2024 23:46 SOL GORE MD May 13, 2024 07:38
[2024-05-09 23:53] LABS: APPEARANCE,URINE CLOUDY (CLEAR); BILIRUBIN,URINE NEGATIVE (NEGATIVE); COLOR,URINE LIGHT-YELLOW (YELLOW); GLUCOSE, URINE (UA) NEGATIVE (NEGATIVE); KETONES,URINE NEGATIVE (NEGATIVE); LEUKOCYTE ESTERASE ,URINE 500 Leu/uL (NEGATIVE); NITRATE,URINE NEGATIVE (NEGATIVE); PH,URINE 5.5 (5.0-8.0); PROTEIN,URINE NEGATIVE (NEGATIVE); UROBILINOGEN,URINE 0.2 mg/dL (0.2-1.0)
[2024-05-09 23:55] LABS: ADD UA MICROSCOPIC YES
[2024-05-09 23:57] LABS: BASOPHILS # (AUTO) 0.05 K/uL (0.00-0.20); BASOPHILS % (AUTO) 0.6 % (0.0-5.0); EOSINOPHILS % (AUTO) 2.3 % (0.0-8.0); HEMATOCRIT 39.7 % (36-48); IMMATURE GRANULOCYTE ABSOLUTE 0.02 K/uL (0-1); LYMPHOCYTES # (AUTO) 2.6 K/uL (1.0-4.8); LYMPHOCYTES % (AUTO) 29.1 % (21.0-51.0); MEAN CORPUSCULAR HGB CONC 33.8 g/dL (32.0-36.0); MEAN CORPUSCULAR VOLUME 97.8 fL (79-99); MONOCYTES # (AUTO) 0.7 K/uL (0.1-1.0); NEUTROPHILS # (AUTO) 5.3 K/uL (1.8-7.7); NEUTROPHILS % (AUTO) 59.8 % (40.0-77.0); PLATELET COUNT (AUTO) 147 K/uL (130-400); RED BLOOD CELL COUNT(AUTO) 4.06 MIL/uL (4.00-5.50); RED CELL DISTRIBUTION WIDTH 11.7 % (11.0-15.5); WHITE BLOOD COUNT (AUTO) 8.8 K/uL (4.8-10.8)
[2024-05-09 23:58] LABS: BACTERIA,URINE RARE /HPF (None Seen); MUCUS,URINE RARE LPF (None Seen); SQUAMOUS EPITHELIAL CELL,UR FEW /HPF (0-2); WBC,URINE TNTC /HPF (0-1)
--- NOTE | 2024-05-10 | NUR ---
ED PROVIDER MADE AWARE OF PATIENT'S CONCERN OF POSSIBLE STD.
[2024-05-10 00:04] LABS: CREATININE 0.7 mg/dL (0.5-1.0); POTASSIUM 3.4 mmol/L (3.5-5.1)
[2024-05-10] MEDS: cefTRIAXone 1G VIAL IVPB ONE (00:14)
[2024-05-10] MEDS ORDERED: DOXY-252 PO (00:21)
[2024-05-10] MEDS ORDERED: NITR100C4 PO (00:21)
[2024-05-10 00:46] VITALS: BP 107/62; PULSE 80; RESP 17; TEMP 98.3; O2SAT 100
== END 2024-05-10 00:57 | disposition home or self-care (01) ==
LOC: EDH 23:20
DX: N39.0 Urinary tract infection, site not specified (principal); Z79.899 Other long term (current) drug therapy
CPT/HCPCS: 99284; 80048; 84703; 85025; 87086; 81001; 36415; 96365; J0696

== ENCOUNTER 2024-06-25 21:32 | Emergency (ER) | payer MEDICAID ==
[~2024-06-25] VITALS: Ht 160 cm; Wt 56.7 kg
[~2024-06-25 21:32] MED LIST changes: +DOXY-252 PO; +NITR100C4 PO
--- NOTE | 2024-06-25 22:27 | ERN ---
ED Note History of Present Illness Stated Complaint: HEADACHE,LOWER BACK PAIN Chief Complaint: Multiple Complaints Time Seen by MD: 21:33 Time Seen by Midlevel: 21:33 Dictation: The patient is a 28-year-old female with no past medical history who presents to the emergency department with complaints of cough, nasal congestion, nontraumatic low back pain onset a week ago. Patient denies any fevers, nausea or vomiting. Reports burning urination a few days ago but has now resolved. Patient reports that back pain is intermediate and currently not having any. Denies any urinary or fecal incontinence. Allergies: Coded Allergies: No Known Allergies (Unverified Allergy, Unknown, 09/22/18) Home Meds Active Scripts Nitrofurantoin Monohyd/M-Cryst (Macrobid 100 mg Capsule) 100 Mg Capsule, 1 CAP PO BID for 7 Days, #14 CAP 0 Refills Prov:ANTONETTE VEGA MD 05/10/24 Doxycycline Hyclate (Doxycycline Hyclate) 100 Mg Tablet.dr, 1 TAB PO BID for 7 Days, #14 TAB 0 Refills Prov:ANTONETTE VEGA MD 05/10/24 Sulfamethoxazole/Trimethoprim (Bactrim Ds Tablet) 800 Mg-160 Mg Tablet, 1 TAB PO Q12H for UTI for 7 Days, #14 TAB Prov:HAL STEVENSON MD 11/19/23 Sulfamethoxazole/Trimethoprim (Bactrim Ds Tablet) 800 Mg-160 Mg Tablet, 1 TAB PO q12, #15 TAB Prov:HAL STEVENSON MD 10/12/23 Levocetirizine Dihydrochloride (Xyzal) 5 Mg Tablet, 5 MG PO DAILY for 30 Days, #30 TAB Prov:NOREEN JAUREGUI 06/19/23 Ibuprofen (Ibuprofen) 600 Mg Tablet, 600 MG PO TIDP PRN for PAIN for 7 Days, #12 TAB Prov:NOREEN JAUREGUI 06/19/23 Ipratropium [place] (Atrovent 0.06% Nasal [place]) 42 Mcg (0.06 %) [place], 1 SPRAY NASAL TIDP PRN for nasal congestion for 4 Days, #1 UNIT 1-2 sprays each nostril for congestion Prov:NOREEN JAUREGUI 06/19/23 Past Medical History Past Medical History: No Pertinent History Surgical History: None Family History: Negative Social History: Negative LMP: May 14, 2024 : 3 Para: 3 RN Note Reviewed/Agreed w/PFSH: Yes Review of System Dictation Constitutional: Negative for fever,chills, and weight loss Eyes: Negative for injury, pain,redness, and discharge ENT: Negative for injury,pain or swelling Cardiovascular: Negative for chest pain, palpitations, and edema Respiratory: Negative for shortness of breath, , and wheezing, positive for cough, nasal congestion Abdomen/GI: Negative for abdominal pain, nausea, vomiting, diarrhea, and constipation Back: Negative for injury and pain, positive for back pain : Negative for injury, bleeding and discharge MS/Extremity: Negative for injury and deformity Skin: Negative for rash, and discoloration Neuro: Negative for headache, weakness, numbness, tingling, and seizure Psych: Negative for suicide ideation, homicidal ideation, and hallucinations Initial Vital Sign VS Vital Signs Date Time Temp Pulse Resp B/P (MAP) Pulse Ox O2 Delivery O2 Flow Rate FiO2 06/25/24 21:37 98.4 87 16 113/68 99 Room Air Physical Exam Dictation Vital Signs reviewed General Appearance: Alert, oriented x 3, no acute distress, well developed, nourished. Head and Face: non-traumatic. Eyes: PERRL, pink conjunctivas, eyelid no trauma, anterior chamber with arcus senilis. Ears: Pinnas intact and no signs of trauma or erythema ear canals clear and no discharge TM no erythema Nose: No discharge, no bleeding. Oropharynx: Mouth normal, tongue pink. pharynx clear,no erythema, tonsils no exudates, no abscesses noted, mucous membrane moist Neck: Supple, non-tender, no thyromegaly, no masses, no JVD, no bruits Breast:Deferred Chest:No tenderness, no crepitus, no paradoxical movement, no retractions Lungs:Clear, well-ventilated, symmetric, no rales, no wheezing, no rhonchi, no stridor, good breath sounds bilaterally Heart: Regular rate, regular rhythm, no murmur, no gallops Vascular: no peripheral edema, Abdomen: Soft, positive bowel sounds, nondistended, no guarding, nontender, no rebound, no masses no hepatomegaly, no splenomegaly, no Cavanaugh's sign, no hernias. Rectal: Deferred Genital: Deferred Neurological: Normal speech, motor function intact, sensory function intact Musculoskeletal: Neck nontender, full range of motion, back nontender, full range of motion, Extremities: nontender, full range of motion Skin: Color pink, dry, no turgor, no rash, no lacerations, no abrasions, no cont usions. Lymphatic: Deferred Results (Laboratory/Radiology) Laboratory/Radiology Laboratory Tests Test 06/25/24 21:55 06/25/24 22:05 Influenza Type A Antigen Negative For Type A Influenza Type B Antigen Negative For Type B SARS-CoV-2 Antigen (Rapid) PRESUMPTIVE NEGATIVE Group A Streptococcus Rapid negative (NEGATIVE) Urine Color COLORLESS (YELLOW) Urine Appearance CLEAR (CLEAR) Urine pH 5.5 (5.0-8.0) Urine Specific [place] 1.005 (1.001-1.031) Urine Protein NEGATIVE mg/dL (NEGATIVE) Urine Glucose (UA) NEGATIVE mg/dL (NEGATIVE) Urine Ketones NEGATIVE mg/dL (NEGATIVE) Urine Occult Blood NEGATIVE (NEGATIVE) Urine Nitrate NEGATIVE (NEGATIVE) Urine Bilirubin NEGATIVE mg/dL (NEGATIVE) Urine Urobilinogen 0.2 mg/dL (0.2-1.0) Urine Leukocyte Esterase 250 [place]/uL (NEGATIVE) H Urine RBC 2-5 /HPF (0-1) H Urine WBC 6-10 /HPF (0-1) H Urine Squamous Epithelial Cells FEW /HPF (0-2) Urine Bacteria None /HPF (None Seen) Urine HCG, Qualitative NEGATIVE (NEGATIVE) Labs Reviewed?: Yes ED Course ED Course Orders Procedure Category Date Status Time Influenza Type A & B, LAB 06/25/24 Complete Rapid 22:05 Covid19 (Sars Antigen LAB 06/25/24 Complete Rapid) 22:05 Rapid (Group A Strep) LAB 06/25/24 Complete 22:05 Urinalysis Profile LAB 06/25/24 Complete 22:05 ,Urine Test LAB 06/25/24 Complete 22:05 Culture Urine BETH 06/25/24 In Process 22:29 Ceftriaxone 1g Vial PHA 06/25/24 Verified (Rocephine 1g Inj) 23:00 Vital Signs Date Time Temp Pulse Resp B/P (MAP) Pulse Ox O2 Delivery O2 Flow Rate FiO2 06/25/24 21:37 98.4 87 16 113/68 99 Room Air Medical Decision Making MDM The patient is a 28-year-old female with no past medical history who presents to the emergency department with complaints of cough, nasal congestion, nontraumatic low back pain onset a week ago. Patient denies any fevers, nausea or vomiting. Reports burning urination a few days ago but has now resolved. Patient reports that back pain is intermediate and currently not having any. Denies any urinary or fecal incontinence. Serology negative. Urinalysis positive for leukocyte esterase. Patient will be giving a dose of Rocephin and discharged on antibiotics. Patient with no fever, no CVA tenderness, nontoxic appearing to follow up Differential diagnosis: Upper respiratory infection, UTI, influenza Need for hospitalization: Patient does not meet criteria for hospitalization. There are no social concerns with this patient. DX & DISP Disposition: Discharge Departure Impression: Primary Impression: Viral URI with cough Additional Impression: UTI (urinary tract infection) Condition: Stable Scripts Sulfamethoxazole/Trimethoprim (Bactrim Ds Tablet) 800 Mg-160 Mg Tablet 1 TAB PO BID for 3 Days, #6 TAB 0 Refills Prov: SHELLEY HENRIQUEZ 06/25/24 Additional Instructions: Please follow up with your primary doctor in 1-2 days. Take medications as prescribed. Does worsen please return to ER. FOLLOW-UP WITH PRIMARY CARE PROVIDER IN 1 TO 2 DAYS. TAKE MEDICATIONS DIRECTED HERE IN THE EMERGENCY ROOM. OKAY TO CONTINUE HOME MEDICATIONS UNLESS OTHERWISE DISCUSSED DURING YOUR VISIT IN THE EMERGENCY ROOM TODAY. RETURN TO YOUR NEAREST EMERGENCY ROOM IF SYMPTOMS WORSEN OR IF THERE IS NO IMPROVEMENT. CALL 911 IF YOU NEED IMMEDIATE ASSISTANCE. TAKE TYLENOL OR MOTRIN OVER -THE-COUNTER NEEDED AND IF NO CONTRAINDICATIONS ARE PRESENT. INCREASE ORAL HYDRATION. A WOUND CULTURE OR URINE CULTURE WAS ORDERED HERE IN THE EMERGENCY ROOM DEPARTMENT PLEASE FOLLOW-UP WITH PRIMARY CARE PROVIDER AND ADVISE THEM TO GET REPEAT PORTS FROM OUR FACILITY. IF YOU HAD ANY MARCUS WRAP/SPLINTS THAT WERE APPLIED HERE, PLEASE DO NOT REMOVE THEM UNTIL YOU SEE YOUR PRIMARY CARE OR SPECIALTY. Referrals: SELF,REFERRAL (PCP) Time of Disposition: 22:43 I have reviewed the case, and I agree with, Diagnosis and Plan SHELLEY HENRIQUEZ Jun 25, 2024 22:27
[2024-06-25 22:28] LABS: ADD UA MICROSCOPIC YES; APPEARANCE,URINE CLEAR (CLEAR); BILIRUBIN,URINE NEGATIVE (NEGATIVE); COLOR,URINE COLORLESS (YELLOW); GLUCOSE, URINE (UA) NEGATIVE (NEGATIVE); KETONES,URINE NEGATIVE (NEGATIVE); LEUKOCYTE ESTERASE ,URINE 250 Leu/uL (NEGATIVE); NITRATE,URINE NEGATIVE (NEGATIVE); OCCULT BLOOD,URINE NEGATIVE (NEGATIVE); PH,URINE 5.5 (5.0-8.0); PROTEIN,URINE NEGATIVE (NEGATIVE); UROBILINOGEN,URINE 0.2 mg/dL (0.2-1.0)
[2024-06-25 22:32] LABS: INFLUENZA TYPE A Negative For Type A (NEGATIVE); INFLUENZA TYPE B Negative For Type B (NEGATIVE)
[2024-06-25 22:32] LABS: SQUAMOUS EPITHELIAL CELL,UR FEW /HPF (0-2)
[2024-06-25 22:33] LABS: COVID19 (SARS ANTIGEN RAPID) PRESUMPTIVE NEGATIVE (NEGATIVE); RAPID GROUP A STREP negative (NEGATIVE)
[2024-06-25 22:37] LABS: HCG,QUALITATIVE URINE NEGATIVE (NEGATIVE)
[2024-06-25] MEDS ORDERED: SULF1TAB42 PO (22:45)
[2024-06-25] MEDS: LIDOCAINE HCL 1% 20 ML VIAL ONE (22:48)
[2024-06-25] MEDS: cefTRIAXone 1G VIAL IM ONE (22:49)
[2024-06-25 23:25] VITALS: BP 109/69; PULSE 71; RESP 16; TEMP 97.8; O2SAT 98
== END 2024-06-25 23:27 | disposition home or self-care (01) ==
LOC: EDH 21:32
DX: J06.9 Acute upper respiratory infection, unspecified (principal); N39.0 Urinary tract infection, site not specified; R50.9 Fever, unspecified; B97.89 Other viral agents as the cause of diseases classified elsewhere; Z20.822 Contact with and (suspected) exposure to COVID-19
CPT/HCPCS: 99283; 87426; 87086; 87880; 87804 ×2; 81001; 81025; 96372; J0696

== ENCOUNTER 2024-07-08 23:19 | Emergency (ER) | payer SELFPAY ==
[~2024-07-08] VITALS: Ht 160 cm; Wt 56.7 kg
--- NOTE | 2024-07-08 23:24 | NUR ---
COVID, FLU AND STREP COLLECTED UA CUP PROVIDED
--- NOTE | 2024-07-08 23:38 | NUR ---
UA COLLECTED AND SENT
[2024-07-08 23:44] LABS: RAPID GROUP A STREP negative (NEGATIVE)
[2024-07-08 23:53] LABS: INFLUENZA TYPE A Negative For Type A (NEGATIVE); INFLUENZA TYPE B Negative For Type B (NEGATIVE)
[2024-07-08 23:55] LABS: APPEARANCE,URINE CLEAR (CLEAR); BILIRUBIN,URINE NEGATIVE (NEGATIVE); COLOR,URINE COLORLESS (YELLOW); GLUCOSE, URINE (UA) NEGATIVE (NEGATIVE); KETONES,URINE NEGATIVE (NEGATIVE); LEUKOCYTE ESTERASE ,URINE NEGATIVE Leu/uL (NEGATIVE); NITRATE,URINE NEGATIVE (NEGATIVE); OCCULT BLOOD,URINE NEGATIVE (NEGATIVE); PH,URINE 6.5 (5.0-8.0); PROTEIN,URINE NEGATIVE (NEGATIVE); UROBILINOGEN,URINE 0.2 mg/dL (0.2-1.0)
[2024-07-08 23:58] LABS: SARS-CoV-2, RNA, NAAT NEGATIVE SARS CoV-2 (NEGATIVE)
[2024-07-09 00:01] LABS: HCG,QUALITATIVE URINE POSITIVE (NEGATIVE)
[2024-07-09 00:06] LABS: ADD UA MICROSCOPIC NO
--- NOTE | 2024-07-09 00:07 | NUR ---
HCG POSITIVE RESULT
--- NOTE | 2024-07-09 00:08 | ERN ---
General Chief Complaint: Multiple Complaints Stated Complaint: ABD PAIN, BACK PAIN, COUGH CONGESTION Time Seen by MD: 23:38 Source: patient History of Present Illness Initial Comments This is a 28-year-old female healthy with complaints of abdominal pain back pain and a cough. No fevers or chills no diarrhea slight change in her urine with burning. 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 Nitrofurantoin Monohyd/M-Cryst (Macrobid 100 mg Capsule) 100 Mg Capsule, 1 CAP PO BID for 7 Days, #14 CAP 0 Refills Prov:ANTONETTE VEGA MD 05/10/24 Doxycycline Hyclate (Doxycycline Hyclate) 100 Mg Tablet.dr, 1 TAB PO BID for 7 Days, #14 TAB 0 Refills Prov:ANTONETTE VEGA MD 05/10/24 Sulfamethoxazole/Trimethoprim (Bactrim Ds Tablet) 800 Mg-160 Mg Tablet, 1 TAB PO Q12H for UTI for 7 Days, #14 TAB Prov:HAL STEVENSON MD 11/19/23 Sulfamethoxazole/Trimethoprim (Bactrim Ds Tablet) 800 Mg-160 Mg Tablet, 1 TAB PO q12, #15 TAB Prov:HAL STEVENSON MD 10/12/23 Levocetirizine Dihydrochloride (Xyzal) 5 Mg Tablet, 5 MG PO DAILY for 30 Days, #30 TAB Prov:NOREEN JAUREGUI 06/19/23 Ibuprofen (Ibuprofen) 600 Mg Tablet, 600 MG PO TIDP PRN for PAIN for 7 Days, #12 TAB Prov:NOREEN JAUREGUI 06/19/23 Ipratropium [place] (Atrovent 0.06% Nasal [place]) 42 Mcg (0.06 %) [place], 1 SPRAY NASAL TIDP PRN for nasal congestion for 4 Days, #1 UNIT 1-2 sprays each nostril for congestion Prov:NOREEN JAUREGUI 06/19/23 Past Medical History Past Medical History: No Pertinent History Past Surgical History: None Family History Family History: Negative Social History Social History: Negative Female( History) LMP: May 17, 2024 : 3 Para: 3 Constitutional: (-) chills, (-) diaphoresis, (-) fever, (-) malaise, (-) weakness, (-) other documentation EENTM: (-) eye pain, (-) blurred vision, (-) tearing, (-) double vision, (-) ear pain, (-) ear discharge, (-) nose pain, (-) nose congestion, (-) throat pain, (-) Throat swelling, (-) mouth pain, (-) tooth pain, (-) mouth swelling, (-) other documentation Respiratory: (+) cough Cardiovascular: (-) chest pain, (-) edema, (-) palpitations, (-) syncope, (-) dyspnea on exertion, (-) other documentation Gastrointestinal/Abdominal: (+) nausea Genitourinary: (-) vaginal discharge, (-) vaginal bleeding, (-) dysuria, (-) frequency, (-) hematuria, (-) pain, (-) other documentation Musculoskeletal: (+) back pain Skin: (-) laceration, (-) contusion, (-) abrasion, (-) abscess, (-) rash, (-) change in color, (-) change in hair, (-) change in nails, (-) diaphoresis, (-) dryness, (-) other documentation Neuro: (-) altered mental status, (-) headache, (-) syncope, (-) paralysis, (-) numbness, (-) seizure, (-) pre-existing deficit, (-) tremors, (-) weakness, (-) dizziness, (-) slurred speech, (-) vertigo, (-) other documentation Physical Exam Physical Exam Dictation Patient filling out the forms sitting in the chair with her three children appearing very comfortable. Not restricted in movement in any way. Head/Face Trauma: No Eye: bilateral eye normal inspection, bilateral eye PERRL, bilateral eye EOMI Ear, Nose, Throat: (+) hearing grossly normal, (+) normal ENT inspection, (+) moist mucous membraine Neck: (+) normal inspection, (+) supple Respiratory: (+) chest non-tender, (+) lungs clear, (+) well ventilated Heart: (+) regular, (+) no gallop Vascular: (+) no edema, (+) normal peripheral pulse Gastrointestinal: (+) soft, (+) non-tender, (+) bowel sound present Back: (+) no CVA tenderness Results Laboratory and Microbiology Lab and Micro Result Laboratory Tests Test 07/08/24 23:24 07/08/24 23:30 07/09/24 00:40 Influenza Type A Antigen Negative For Type A Influenza Type B Antigen Negative For Type B SARS-CoV-2, RNA, NAAT NEGATIVE SARS CoV-2 Group A Streptococcus Rapid negative (NEGATIVE) Urine Color COLORLESS (YELLOW) Urine Appearance CLEAR (CLEAR) Urine pH 6.5 (5.0-8.0) Urine Specific [place] 1.007 (1.001-1.031) Urine Protein NEGATIVE mg/dL (NEGATIVE) Urine Glucose (UA) NEGATIVE mg/dL (NEGATIVE) Urine Ketones NEGATIVE mg/dL (NEGATIVE) Urine Occult Blood NEGATIVE (NEGATIVE) Urine Nitrate NEGATIVE (NEGATIVE) Urine Bilirubin NEGATIVE mg/dL (NEGATIVE) Urine Urobilinogen 0.2 mg/dL (0.2-1.0) Urine Leukocyte Esterase NEGATIVE [place]/uL Urine HCG, Qualitative POSITIVE (NEGATIVE) H White Blood Count 9.4 K/uL (4.8-10.8) Red Blood Count 4.10 MIL/uL (4.00-5.50) Hemoglobin 13.5 g/dL (12.0-16.0) Hematocrit 39.7 % (36-48) Mean Corpuscular Volume 96.8 fL (79-99) Mean Corpuscular Hemoglobin 32.9 pg (27.0-33.0) Mean Corpuscular Hemoglobin Concent 34.0 g/dL (32.0-36.0) Red Cell Distribution Width 11.9 % (11.0-15.5) Platelet Count 169 K/uL (130-400) Mean Platelet Volume 12.7 fL (7.5-10.5) H Immature Granulocyte % (Auto) 0.3 % (0-1) Neutrophils (%) (Auto) 66.8 % (40.0-77.0) Lymphocytes (%) (Auto) 22.5 % (21.0-51.0) Monocytes (%) (Auto) 7.9 % (3.0-13.0) Eosinophils (%) (Auto) 2.1 % (0.0-8.0) Basophils (%) (Auto) 0.4 % (0.0-5.0) Neutrophils # (Auto) 6.3 K/uL (1.8-7.7) Lymphocytes # (Auto) 2.1 K/uL (1.0-4.8) Monocytes # (Auto) 0.7 K/uL (0.1-1.0) Eosinophils # (Auto) 0.20 K/uL (0.00-0.70) Basophils # (Auto) 0.04 K/uL (0.00-0.20) Absolute Immature Granulocyte (auto 0.03 K/uL (0-1) Nucleated Red Blood Cells 0.0 % (0.0-0.19) Sodium Level 138 mmol/L (136-145) Potassium Level 3.4 mmol/L (3.5-5.1) L Chloride Level 104 mmol/L (101-111) Carbon Dioxide Level 29 mmol/L (21-32) Blood Urea Nitrogen 12 mg/dL (7-18) Creatinine 0.7 mg/dL (0.5-1.0) Glomerular Filtration Rate Calc 121 mL/min (>90) Random Glucose 83 mg/dL (70-105) Total Calcium 8.7 mg/dL (8.5-10.1) MDM Patient is extremely comfortable and her symptoms are mild. I will however do nasal swabs for the cough and a chemistry panel CBC and a urine analysis. Patient's chemistry panel CBC and urinalysis are all fine and her nasal swabs are negative. I gave her a L of fluid she feels a little bit better she would like to go home. ED Course Orders Procedure Category Date Status Time Covid Rna Naat LAB 07/08/24 Complete 23:25 Influenza Type A & B, LAB 07/08/24 Complete Rapid 23:25 Rapid (Group A Strep) LAB 07/08/24 Complete 23:25 Urinalysis Profile LAB 07/08/24 Complete 23:37 ,Urine Test LAB 07/08/24 Complete 23:37 Cbc With Differential LAB 07/09/24 Complete 00:08 ,Urine Test LAB 07/09/24 Logged 00:08 Urinalysis Profile LAB 4/20/25 Logged 00:08 Lactated Ringers PHA 07/09/24 Complete 1000ml (Lactated 00:30 Basic Metabolic Panel LAB 07/09/24 Complete 00:08 Covid19 (Sars Antigen LAB 07/09/24 Logged Rapid) 00:08 Rapid (Group A Strep) LAB 07/09/24 Logged 00:08 Procalcitonin LAB 07/09/24 In Process 00:21 Current Medications Medications (Trade) Dose Ordered Sig/Chace Route PRN Reason Start Time Stop Time Status Last Admin Dose Admin Lactated Ringer's 1,000 ml @ 0 mls/hr ONCE ONCE IV 07/09/24 00:30 07/09/24 00:31 DC 07/09/24 00:33 Vital Signs Date Time Temp Pulse Resp B/P (MAP) Pulse Ox O2 Delivery O2 Flow Rate FiO2 07/08/24 23:20 99.1 90 20 104/58 98 Room Air DX & DISP Disposition: Discharge Departure Impression: Primary Impression: Early stage of Additional Impression: URTI (acute upper respiratory infection) Condition: Stable Additional Instructions: Please return if your symptoms do not improve in the next week or if they get worse and you can not stay well hydrated or control the symptoms. He can also follow up with her primary care physician. Referrals: DG UNDERWOOD MD (PCP) CHIQUIS CARPIO MD Jul 09, 2024 00:08
--- NOTE | 2024-07-09 00:16 | NUR ---
DR CHRISTOPHER ORDERED COVID, FLU AND STREP AT 0010. INFORMED HIM THAT ORDER WAS PLACED AND COLLECTED AT TIME OF TRIAGE 2324 AND ALREADY RESULTED
--- NOTE | 2024-07-09 00:17 | NUR ---
INFORMED DR CARPIO THAT UA AND HCG WAS ORDERED AND COLLECTED AT 2338 AND RESULTED. HE PLACED DULPICATE ORDER AT 0010
[2024-07-09] MEDS: LACTATED RINGERS 1000ML 1,000 ML IV ONE (00:33)
[2024-07-09 00:59] LABS: BASOPHILS # (AUTO) 0.04 K/uL (0.00-0.20); BASOPHILS % (AUTO) 0.4 % (0.0-5.0); EOSINOPHILS % (AUTO) 2.1 % (0.0-8.0); HEMATOCRIT 39.7 % (36-48); IMMATURE GRANULOCYTE ABSOLUTE 0.03 K/uL (0-1); LYMPHOCYTES # (AUTO) 2.1 K/uL (1.0-4.8); LYMPHOCYTES % (AUTO) 22.5 % (21.0-51.0); MEAN CORPUSCULAR HEMOGLOBIN 32.9 pg (27.0-33.0); MEAN CORPUSCULAR VOLUME 96.8 fL (79-99); MONOCYTES # (AUTO) 0.7 K/uL (0.1-1.0); MONOCYTES % (AUTO) 7.9 % (3.0-13.0); NEUTROPHILS # (AUTO) 6.3 K/uL (1.8-7.7); NEUTROPHILS % (AUTO) 66.8 % (40.0-77.0); PLATELET COUNT (AUTO) 169 K/uL (130-400); RED CELL DISTRIBUTION WIDTH 11.9 % (11.0-15.5); WHITE BLOOD COUNT (AUTO) 9.4 K/uL (4.8-10.8)
[2024-07-09 01:01] LABS: CREATININE 0.7 mg/dL (0.5-1.0); POTASSIUM 3.4 mmol/L (3.5-5.1)
[2024-07-09 01:18] VITALS: BP 128/65; PULSE 78; RESP 20; TEMP 98.5; O2SAT 98
== END 2024-07-09 01:24 | disposition home or self-care (01) ==
LOC: EDH 23:19
DX: O26.891 Other specified pregnancy related conditions, first trimester (principal); J06.9 Acute upper respiratory infection, unspecified; Z3A.08 8 weeks gestation of pregnancy; Z20.822 Contact with and (suspected) exposure to COVID-19
CPT/HCPCS: 99283; 87635; 80048; 85025; 87880; 87804 ×2; 81003; 81025; 36415; 84145; 96360; J7120

== ENCOUNTER 2024-09-17 21:47 | Emergency (ER) | payer MEDICAID ==
[~2024-09-17] VITALS: Ht 160 cm; Wt 53.1 kg
[2024-09-17 22:12] LABS: APPEARANCE,URINE CLEAR (CLEAR); BILIRUBIN,URINE NEGATIVE (NEGATIVE); COLOR,URINE LIGHT-YELLOW (YELLOW); GLUCOSE, URINE (UA) NEGATIVE (NEGATIVE); KETONES,URINE NEGATIVE (NEGATIVE); LEUKOCYTE ESTERASE ,URINE NEGATIVE Leu/uL (NEGATIVE); NITRATE,URINE NEGATIVE (NEGATIVE); OCCULT BLOOD,URINE NEGATIVE (NEGATIVE); PROTEIN,URINE NEGATIVE (NEGATIVE)
[2024-09-17 22:14] LABS: ADD UA MICROSCOPIC YES
[2024-09-17 22:16] LABS: MUCUS,URINE RARE LPF (None Seen); SQUAMOUS EPITHELIAL CELL,UR RARE /HPF (0-2)
[2024-09-17 22:59] LABS: BASOPHILS # (AUTO) 0.02 K/uL (0.00-0.20); BASOPHILS % (AUTO) 0.2 % (0.0-5.0); EOSINOPHILS # (AUTO) 0.11 K/uL (0.00-0.70); EOSINOPHILS % (AUTO) 1.2 % (0.0-8.0); HEMATOCRIT 32.5 % (36-48); IMMATURE GRANULOCYTE ABSOLUTE 0.04 K/uL (0-1); LYMPHOCYTES % (AUTO) 21.1 % (21.0-51.0); MEAN CORPUSCULAR HEMOGLOBIN 32.8 pg (27.0-33.0); MEAN CORPUSCULAR HGB CONC 34.8 g/dL (32.0-36.0); MEAN CORPUSCULAR VOLUME 94.5 fL (79-99); MONOCYTES # (AUTO) 0.6 K/uL (0.1-1.0); MONOCYTES % (AUTO) 6.1 % (3.0-13.0); NEUTROPHILS # (AUTO) 6.7 K/uL (1.8-7.7); PLATELET COUNT (AUTO) 114 K/uL (130-400); RED BLOOD CELL COUNT(AUTO) 3.44 MIL/uL (4.00-5.50); RED CELL DISTRIBUTION WIDTH 12.2 % (11.0-15.5); WHITE BLOOD COUNT (AUTO) 9.4 K/uL (4.8-10.8)
[2024-09-17 23:02] LABS: CREATININE 0.6 mg/dL (0.5-1.0); POTASSIUM 3.6 mmol/L (3.5-5.1)
--- NOTE | 2024-09-17 23:45 | ERN ---
General Chief Complaint: Abdominal Pain in Stated Complaint: 15 WKS , DIZZINESS, SOB, ABDOMINAL PAIN Time Seen by MD: 21:50 Source: patient History of Present Illness Initial Comments Patient is a 28-year-old female coming in to be evaluated for lower abdominal discomfort. Patient states that she has been also felt with the weakness. Patient is a weeks by date. No other current complaint. 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 Nitrofurantoin Monohyd/M-Cryst (Macrobid 100 mg Capsule) 100 Mg Capsule, 1 CAP PO BID for 7 Days, #14 CAP 0 Refills Prov:ANTONETTE VEGA MD 05/10/24 Doxycycline Hyclate (Doxycycline Hyclate) 100 Mg Tablet.dr, 1 TAB PO BID for 7 Days, #14 TAB 0 Refills Prov:ANTONETTE VEGA MD 05/10/24 Sulfamethoxazole/Trimethoprim (Bactrim Ds Tablet) 800 Mg-160 Mg Tablet, 1 TAB PO Q12H for UTI for 7 Days, #14 TAB Prov:HAL STEVENSON MD 11/19/23 Sulfamethoxazole/Trimethoprim (Bactrim Ds Tablet) 800 Mg-160 Mg Tablet, 1 TAB PO q12, #15 TAB Prov:HAL STEVENSON MD 10/12/23 Levocetirizine Dihydrochloride (Xyzal) 5 Mg Tablet, 5 MG PO DAILY for 30 Days, #30 TAB Prov:NOREEN JAUREGUI 06/19/23 Ibuprofen (Ibuprofen) 600 Mg Tablet, 600 MG PO TIDP PRN for PAIN for 7 Days, #12 TAB Prov:NOREEN JAUREGUI 06/19/23 Ipratropium [place] (Atrovent 0.06% Nasal [place]) 42 Mcg (0.06 %) [place], 1 SPRAY NASAL TIDP PRN for nasal congestion for 4 Days, #1 UNIT 1-2 sprays each nostril for congestion Prov:NOREEN JAUREGUI 06/19/23 Past Medical History Past Medical History: No Pertinent History Past Surgical History: None Family History Family History: Negative Social History Social History: Negative Female( History) LMP: May 16, 2024 : 4 Para: 3 Aborts: 0 ROS Dictation CONSTITUTIONAL: No chills, no fever, no weakness, no diaphoresis, no malaise. HEAD/FACE: No signs of trauma. EENT: No eye pain, no blurred vision, no tearing, no double vision, no ear pain, no ear discharge, no nose pain, no nasal congestion, no throat pain, no throat swelling, no mouth pain. RESPIRATORY: No cough, no orthopnea, no SOB, no stridor, no wheezing. CARDIOVASCULAR: No chest pain, no edema, no palpitations, no syncope. GASTROINTESTINAL/ABDOMINAL: No abdominal pain, no constipation, no diarrhea, no nausea, no vomiting. GENITOURINARY: No abnormal discharge, no dysuria, no frequent urination, no hematuria. No complaints of pain in the genitals. MUSCULOSKELETAL: No back pain, no gout, no joint pain, no joint swelling, no muscle pain, no muscle stiffness, no neck pain. INTEGUMENTARY: No change in color, no change in hair/nails, no dryness, no lesion, no lumps, no rash. NEUROLOGICAL/PSYCH: No anxiety, not depressed, no emotional problem, no headache, no numbness, no pre-existing deficit, no history of seizures, no tremors, no weakness. HEMATOLOGIC/LYMPHATIC: Not anemic, no history of blood clots, no apparent bleeding, no bruising, glands not swollen. All Systems Negative, Except as Noted. Physical Exam Physical Exam Dictation VITAL SIGNS: Reviewed. GENERAL APPEARANCE: Alert, oriented x3, no acute distress, obese. HEAD AND FACE: Non-traumatic. EYES: PERRL, pink conjunctivas, eyelid no trauma, anterior chamber clear. EARS: Pinnas intact and no signs of trauma or erythema. Ear canals clear and no discharge. TMs no erythema. NOSE: No discharge, no bleeding. OROPHARYNX: Mouth normal, teeth no caries, tongue pink. Pharynx clear, no erythema. Tonsils no exudates, no abscesses noted. Mucous membrane moist. NECK: Supple, non-tender, no thyromegaly, no masses, no JVD, no bruits. BREAST: Deferred. CHEST: No tenderness, no crepitus, no paradoxical movement, no retractions. LUNGS: Clear, well-ventilated, symmetric, no rales, no wheezing, no rhonchi, no stridor, good breath sounds bilaterally. HEART: Regular rate, regular rhythm, no murmur, no gallops. VASCULAR: No peripheral edema. ABDOMEN: Soft, positive bowel sounds, nondistended, no guarding, nontender, no rebound, no masses no hepatomegaly, no splenomegaly, no Cavanaugh's sign, no hernias. RECTAL: Deferred. GENITAL: Deferred. NEUROLOGICAL: Normal speech, gross motor function intact, gross sensory function intact. MUSCULOSKELETAL: Neck nontender, full range of motion, back nontender, full range of motion. EXTREMITIES: Nontender, full range of motion. SKIN: Color pink, dry, no turgor, no rash, no lacerations, no abrasions, no contusions. LYMPHATICS: Deferred. Results Laboratory and Microbiology Lab and Micro Result Laboratory Tests Test 09/17/24 22:05 09/17/24 22:43 Urine Color LIGHT-YELLOW (YELLOW) Urine Appearance CLEAR (CLEAR) Urine pH 6.0 (5.0-8.0) Urine Specific [place] 1.022 (1.001-1.031) Urine Protein NEGATIVE mg/dL (NEGATIVE) Urine Glucose (UA) NEGATIVE mg/dL (NEGATIVE) Urine Ketones NEGATIVE mg/dL (NEGATIVE) Urine Occult Blood NEGATIVE (NEGATIVE) Urine Nitrate NEGATIVE (NEGATIVE) Urine Bilirubin NEGATIVE mg/dL (NEGATIVE) Urine Urobilinogen 2.0 mg/dL (0.2-1.0) H Urine Leukocyte Esterase NEGATIVE [place]lin/uL Urine RBC 2-5 /HPF (0-1) H Urine WBC 2-5 /HPF (0-1) H Urine Squamous Epithelial Cells RARE /HPF (0-2) Urine Bacteria None /HPF (None Seen) White Blood Count 9.4 K/uL (4.8-10.8) Red Blood Count 3.44 MIL/uL (4.00-5.50) L Hemoglobin 11.3 g/dL (12.0-16.0) L Hematocrit 32.5 % (36-48) L Mean Corpuscular Volume 94.5 fL (79-99) Mean Corpuscular Hemoglobin 32.8 pg (27.0-33.0) Mean Corpuscular Hemoglobin Concent 34.8 g/dL (32.0-36.0) Red Cell Distribution Width 12.2 % (11.0-15.5) Platelet Count 114 K/uL (130-400) L Mean Platelet Volume 12.6 fL (7.5-10.5) H Immature Granulocyte % (Auto) 0.4 % (0-1) Neutrophils (%) (Auto) 71.0 % (40.0-77.0) Lymphocytes (%) (Auto) 21.1 % (21.0-51.0) Monocytes (%) (Auto) 6.1 % (3.0-13.0) Eosinophils (%) (Auto) 1.2 % (0.0-8.0) Basophils (%) (Auto) 0.2 % (0.0-5.0) Neutrophils # (Auto) 6.7 K/uL (1.8-7.7) Lymphocytes # (Auto) 2.0 K/uL (1.0-4.8) Monocytes # (Auto) 0.6 K/uL (0.1-1.0) Eosinophils # (Auto) 0.11 K/uL (0.00-0.70) Basophils # (Auto) 0.02 K/uL (0.00-0.20) Absolute Immature Granulocyte (auto 0.04 K/uL (0-1) Nucleated Red Blood Cells 0.0 % (0.0-0.19) Sodium Level 138 mmol/L (136-145) Potassium Level 3.6 mmol/L (3.5-5.1) Chloride Level 104 mmol/L (101-111) Carbon Dioxide Level 24 mmol/L (21-32) Blood Urea Nitrogen 5 mg/dL (7-18) L Creatinine 0.6 mg/dL (0.5-1.0) Glomerular Filtration Rate Calc 126 mL/min (>90) Random Glucose 94 mg/dL (70-105) Total Calcium 8.5 mg/dL (8.5-10.1) Serum Test, Qualitative POSITIVE (NEGATIVE) H Labs Reviewed?: Yes EKG/XRAY/US/CT/MRI Ultrasound Comment Ultrasound OBGYN greater than 15 weeks- within normal limits MDM MDM: Differential diagnosis: Abdominal pain, , UTI, Rationale: Tests considered and ordered secondary to shared decision making include: Previous outside records reviewed: Old ER visits. Risk of complication and/or morbidity or mortality of patient management: None Medications-Per medication reconciliation Need for hospitalization: Patient does not meet criteria for hospitalization. Patient is a 28-year-old female weeks by date coming in complaining of lower abdominal pain with a states that her pain has subsided since getting to the ER. Laboratory workup including ultrasound did not disclose acute findings. I did advised her appropriate follow up with PCP in his case OBGYN in 1-2 days for ongoing evaluation and management. ED Course Orders Procedure Category Date Status Time Urinalysis Profile LAB 09/17/24 Complete 22:03 Testing, LAB 09/17/24 Complete Serum Hcg 22:29 Us Ob >14 Weeks US 09/17/24 Taken 22:29 Basic Metabolic Panel LAB 09/17/24 Complete 22:53 Cbc With Differential LAB 09/17/24 Complete :53 Hcg,Quantitative LAB 09/17/24 In Process 23:04 Vital Signs Date Time Temp Pulse Resp B/P (MAP) Pulse Ox O2 Delivery O2 Flow Rate FiO2 09/17/24 22:11 89 18 93/55 100 Room Air* 0 21 09/17/24 21:49 98.8 81 16 84/53 100 Room Air 0 DX & DISP Disposition: Discharge Departure Impression: Primary Impression: 4, currently Additional Impression: Abdominal discomfort Condition: Stable Additional Instructions: FOLLOW-UP WITH PRIMARY CARE PROVIDER IN 1 TO 2 DAYS. TAKE MEDICATIONS DIRECTED HERE IN THE EMERGENCY ROOM. OKAY TO CONTINUE HOME MEDICATIONS UNLESS OTHERWISE DISCUSSED DURING YOUR VISIT IN THE EMERGENCY ROOM TODAY. RETURN TO YOUR NEAREST EMERGENCY ROOM IF SYMPTOMS WORSEN OR IF THERE IS NO IMPROVEMENT. CALL 911 IF YOU NEED IMMEDIATE ASSISTANCE. TAKE TYLENOL [id number] NEEDED AND IF NO CONTRAINDICATIONS ARE PRESENT. INCREASE ORAL HYDRATION. A WOUND CULTURE OR URINE CULTURE WAS ORDERED HERE IN THE EMERGENCY ROOM DEPARTMENT PLEASE FOLLOW-UP WITH PRIMARY CARE PROVIDER AND ADVISE THEM TO GET REPORTS FROM OUR FACILITY. IF YOU HAD ANY MARCUS WRAP/SPLINTS THAT WERE APPLIED HERE, PLEASE DO NOT REMOVE THEM UNTIL YOU SEE YOUR PRIMARY CARE OR SPECIALTY. Referrals: Referrals: SELF,REFERRAL (PCP) OSBALDO MAYER MD, LUIS A MD Time of Disposition: 23:44 SOL GORE MD Sep 17, 2024 23:45
[2024-09-17 23:50] VITALS: BP 101/55; PULSE 95; RESP 18; TEMP 98.4; O2SAT 100
--- NOTE | 2024-09-18 00:21 | HMCIMG ---
EXAM: US Obstetrical, Complete >14 weeks. CLINICAL HISTORY: Abdominal pain. TECHNIQUE: Transabdominal imaging of the maternal pelvis and a > 14 week gestation with image documentation. COMPARISON: None provided. FINDINGS: FETUS: There is a single living intrauterine gestation. POSITION: position is cephalic. HEART RATE: The heart rate is 155 beats per minute. BIOMETRICS: Based on composite biometry, the estimated gestational age by ultrasound is 15 weeks 5 days. ANATOMIC SURVEY: The visualized anatomy is unremarkable. PLACENTA: The placenta is anterior and grade 1 maturity. No sonographic evidence for previa or abruption. AMNIOTIC FLUID: Within normal limits. 9.1 cm. CERVIX: Closed. Unremarkable as visualized. BPD 3.2 cm, 16 weeks and 0 days. HC 12.2 cm, 16 weeks and 1 day. AC 9.9 cm, 16 weeks and 0 days. FL 1.7 cm, 15 weeks and 1 day. The estimated weight is 129 g ???19 g. IMPRESSION: Single viable intrauterine with a gestational age of 15 weeks and 5 days.. No gross abnormality is detected. /[place]
== END 2024-09-17 23:51 | disposition home or self-care (01) ==
LOC: EDH 21:47
DX: O26.892 Other specified pregnancy related conditions, second trimester (principal); R10.84 Generalized abdominal pain; R10.2 Pelvic and perineal pain; Z3A.15 15 weeks gestation of pregnancy
CPT/HCPCS: 36415; 76805; 80048; 81001; 84702; 84703; 85025; 99284

== ENCOUNTER 2024-12-31 23:17 | Emergency (ER) | payer MEDICAID ==
[~2024-12-31] VITALS: Ht 160 cm; Wt 56.7 kg
[~2024-12-31 23:17] MED LIST changes: +IBUP-1492 PO; -IBUP-2070 PO
[2024-12-31 23:18] VITALS: TEMP 98.1
--- NOTE | 2024-12-31 23:21 | NUR ---
UA CUP PROVIDED
--- NOTE | 2025-01-01 00:07 | NUR ---
PT SITTING ALONG WINDOWS IN FRONT OF [place] [address] WITH FAMILY AND CHILD. INTERACTING WELL WITH FAMILY, NO ACUTE DISTRESS NOTED. GOOD EVEN CHEST RISED AND FALL OBSERVED. APPEARD RELAXED, LAUGHING AND PLAYING WITH CHILD
--- NOTE | 2025-01-01 00:26 | NUR ---
UA COLLECTED AND SENT
[2025-01-01 00:59] LABS: IMMATURE GRANULOCYTE ABSOLUTE 0.12 K/uL (0-1); NUCLEATED RED BLOOD CELLS 0.0 % (0.0-0.19); PLATELET COUNT (AUTO) 143 K/uL (130-400); RED BLOOD CELL COUNT(AUTO) 3.46 MIL/uL (4.00-5.50); RED CELL DISTRIBUTION WIDTH 11.8 % (11.0-15.5); WHITE BLOOD COUNT (AUTO) 15.1 K/uL (4.8-10.8)
[2025-01-01 01:03] LABS: APPEARANCE,URINE CLEAR (CLEAR); GLUCOSE, URINE (UA) NEGATIVE (NEGATIVE); LEUKOCYTE ESTERASE ,URINE 250 Leu/uL (NEGATIVE); NITRATE,URINE NEGATIVE (NEGATIVE); OCCULT BLOOD,URINE NEGATIVE (NEGATIVE)
[2025-01-01 01:05] LABS: ADD UA MICROSCOPIC YES
[2025-01-01 01:10] LABS: CREATININE 0.6 mg/dL (0.5-1.0); GLOMERULAR FILTR. RATE CALC 125.0 mL/min (>90); GLUCOSE,RANDOM 85.0 mg/dL (70-105); SODIUM SERUM 138.0 mmol/L (136-145); UREA NITROGEN, BLOOD 9.0 mg/dL (7-18)
[2025-01-01 01:13] LABS: SQUAMOUS EPITHELIAL CELL,UR FEW /HPF (0-2)
[2025-01-01] MEDS ORDERED: NITR100C4 PO (02:44)
--- NOTE | 2025-01-01 02:45 | ERN ---
ED Note History of Present Illness Stated Complaint: ABD PAIN, BACK PAIN, HEADACHE Chief Complaint: OB>20 weeks gest. Time Seen by MD: 23:50 Dictation: This is a 29-year-old female who is 4 comes in with a lower abdominal pain and back pain for the past 24 hours. She was noted to be playing with her child in no distress in the triage area as well as in the ER. Fever chills or rigors. No vaginal bleeding. No drainage. No nausea vomitings or diarrhea. No history of fall. Temperature 98.1 pulse 107 respirations 20 blood pressure 100/57 with a pulse oximetry of 98% on room air Allergies: Coded Allergies: No Known Allergies (Unverified Allergy, Unknown, 09/22/18) Home Meds Active Scripts Nitrofurantoin Monohyd/M-Cryst (Macrobid 100 mg Capsule) 100 Mg Capsule, 1 CAP PO BID for 7 Days, #14 CAP 0 Refills Prov:AKBAR BHATIA MD 01/01/25 Sulfamethoxazole/Trimethoprim (Bactrim Ds Tablet) 800 Mg-160 Mg Tablet, 1 TAB PO BID for 3 Days, #6 TAB 0 Refills Prov:SHELLEY HENRIQUEZ 06/25/24 Nitrofurantoin Monohyd/M-Cryst (Macrobid 100 mg Capsule) 100 Mg Capsule, 1 CAP PO BID for 7 Days, #14 CAP 0 Refills Prov:ANTONETTE VEGA MD 05/10/24 Doxycycline Hyclate (Doxycycline Hyclate) 100 Mg Tablet.dr, 1 TAB PO BID for 7 Days, #14 TAB 0 Refills Prov:ANTONETTE VEGA MD 05/10/24 Sulfamethoxazole/Trimethoprim (Bactrim Ds Tablet) 800 Mg-160 Mg Tablet, 1 TAB PO Q12H for UTI for 7 Days, #14 TAB Prov:HAL STEVENSON MD 11/19/23 Sulfamethoxazole/Trimethoprim (Bactrim Ds Tablet) 800 Mg-160 Mg Tablet, 1 TAB PO q12, #15 TAB Prov:HAL STEVENSON MD 10/12/23 Levocetirizine Dihydrochloride (Xyzal) 5 Mg Tablet, 5 MG PO DAILY for 30 Days, #30 TAB Prov:NOREEN JAUREGUI 06/19/23 Ibuprofen (Ibuprofen) 600 Mg Tablet, 600 MG PO TIDP PRN for PAIN for 7 Days, #12 TAB Prov:NOREEN JAUREGUI 06/19/23 Ipratropium [place] (Atrovent 0.06% Nasal [place]) 42 Mcg (0.06 %) [place], 1 SPRAY NASAL TIDP PRN for nasal congestion for 4 Days, #1 UNIT 1-2 sprays each nostril for congestion Prov:NOREEN JAUREGUI 06/19/23 Past Medical History Past Medical History: No Pertinent History Surgical History: None Family History: Negative Social History: Negative : 4 Para: 3 Aborts: 0 RN Note Reviewed/Agreed w/PFSH: Yes Review of System Dictation Constitutional: Negative for fever,chills, and weight loss Eyes: Negative for injury, pain,redness, and discharge ENT: Negative for injury,pain or swelling Cardiovascular: Negative for chest pain, palpitations, and edema Respiratory: Negative for shortness of breath, cough, and wheezing, Abdomen/GI: Positive for abdominal pain, denies nausea, vomiting, diarrhea, and constipation Back: Negative for injury and positive for back pain : Negative for injury, bleeding and discharge MS/Extremity: Negative for injury and deformity Skin: Negative for rash, and discoloration Neuro: Negative for headache, weakness, numbness, tingling, and seizure Psych: Negative for suicide ideation, homicidal ideation, and hallucinations Initial Vital Sign VS Vital Signs Date Time Temp Pulse Resp B/P (MAP) Pulse Ox O2 Delivery O2 Flow Rate FiO2 12/31/24 23:18 98.1 107 20 100/57 98 Room Air 01/01/25 03:14 0 21 Physical Exam Dictation General: awake, alert, NAD Head/Face: Normocephalic, atraumatic Eyes: PERRL, EOMI, vision at baseline ENT: oral cavity clear, TMs clear, no signs of infection Neck: Trachea midline, supple, no nuchal rigidity Cardiovascular: RRR, normal S1/S2, No MRGs, no JVD Respiratory: CTAB, no respiratory distress, No rales or wheezes Abdomen: Soft, non-tender, non-distended, normal bowel sounds, no guarding or rebound. Gravid uterus Skin: Warm, dry, normal turgor, no rash MS/Extremity: Pulses equal, no cyanosis, neurovascular intact, FROM Neuro: COAx4, GCS 15, strength 5/5, CN 2-12 intact, normal cerebellar exam, normal gait, Psych: Normal behavior, mood, and affect normal Extremities-trace edema without any palpable cords, Homans sign is negative Results (Laboratory/Radiology) Laboratory/Radiology Laboratory Tests Test 01/01/25 00:26 01/01/25 00:37 Urine Color LIGHT-YELLOW (YELLOW) Urine Appearance CLEAR (CLEAR) Urine pH 7.0 (5.0-8.0) Urine Specific [place] 1.010 (1.001-1.031) Urine Protein NEGATIVE mg/dL (NEGATIVE) Urine Glucose (UA) NEGATIVE mg/dL (NEGATIVE) Urine Ketones NEGATIVE mg/dL (NEGATIVE) Urine Occult Blood NEGATIVE (NEGATIVE) Urine Nitrate NEGATIVE (NEGATIVE) Urine Bilirubin NEGATIVE mg/dL (NEGATIVE) Urine Urobilinogen 0.2 mg/dL (0.2-1.0) Urine Leukocyte Esterase 250 [place]/uL (NEGATIVE) H Urine RBC 0-1 /HPF (0-1) Urine WBC 11-25 /HPF (0-1) H Urine Squamous Epithelial Cells FEW /HPF (0-2) Urine Bacteria FEW /HPF (None Seen) White Blood Count 15.1 K/uL (4.8-10.8) H Red Blood Count 3.46 MIL/uL (4.00-5.50) L Hemoglobin 11.6 g/dL (12.0-16.0) L Hematocrit 33.2 % (36-48) L Mean Corpuscular Volume 96.0 fL (79-99) Mean Corpuscular Hemoglobin 33.5 pg (27.0-33.0) H Mean Corpuscular Hemoglobin Concent 34.9 g/dL (32.0-36.0) Red Cell Distribution Width 11.8 % (11.0-15.5) Platelet Count 143 K/uL (130-400) Mean Platelet Volume 12.3 fL (7.5-10.5) H Immature Granulocyte % (Auto) 0.8 % (0-1) Neutrophils (%) (Auto) 76.6 % (40.0-77.0) Lymphocytes (%) (Auto) 13.9 % (21.0-51.0) L Monocytes (%) (Auto) 7.6 % (3.0-13.0) Eosinophils (%) (Auto) 0.8 % (0.0-8.0) Basophils (%) (Auto) 0.3 % (0.0-5.0) Neutrophils # (Auto) 11.6 K/uL (1.8-7.7) H Lymphocytes # (Auto) 2.1 K/uL (1.0-4.8) Monocytes # (Auto) 1.2 K/uL (0.1-1.0) H Eosinophils # (Auto) 0.12 K/uL (0.00-0.70) Basophils # (Auto) 0.04 K/uL (0.00-0.20) Absolute Immature Granulocyte (auto 0.12 K/uL (0-1) Nucleated Red Blood Cells 0.0 % (0.0-0.19) Sodium Level 138 mmol/L (136-145) Potassium Level 3.8 mmol/L (3.5-5.1) Chloride Level 102 mmol/L (101-111) Carbon Dioxide Level 24 mmol/L (21-32) Blood Urea Nitrogen 9 mg/dL (7-18) Creatinine 0.6 mg/dL (0.5-1.0) Glomerular Filtration Rate Calc 125 mL/min (>90) Random Glucose 85 mg/dL (70-105) Total Calcium 8.6 mg/dL (8.5-10.1) Labs Reviewed?: Yes ED Course ED Course Orders Procedure Category Date Status Time Cbc With Differential LAB 01/01/25 Complete 00:13 Basic Metabolic Panel LAB 01/01/25 Complete 00:13 Urinalysis Profile LAB 01/01/25 Complete 00:13 Culture Urine BETH 01/01/25 In Process 01:05 0.9%Nacl 1000ml (Ns PHA 01/01/25 Complete 1000ml) 02:00 Ceftriaxone 1g Vial PHA 01/01/25 Complete (Rocephine 1g Inj) 02:00 Morphine 4mg Syg PHA 01/01/25 Complete (Morphine 4mg Syg) 02:00 Current Medications Medications (Trade) Dose Ordered Sig/Chace Route PRN Reason Start Time Stop Time Status Last Admin Dose Admin Ceftriaxone Sodium (ROCEphine 1G INJ) 1 gm ONCE ONCE IVPB 01/01/25 02:00 01/01/25 02:01 DC 01/01/25 03:01 Morphine Sulfate (morPHINE 4MG SYG) 2 mg ONCE ONCE IVP 01/01/25 02:00 01/01/25 02:01 DC 01/01/25 03:02 Sodium Chloride 1,000 ml @ 0 mls/hr ONCE ONCE IV 01/01/25 02:00 01/01/25 02:01 DC 01/01/25 03:01 Vital Signs Date Time Temp Pulse Resp B/P (MAP) Pulse Ox O2 Delivery O2 Flow Rate FiO2 01/01/25 03:14 98 18 95/58 96 Room Air* 0 21 12/31/24 23:18 98.1 107 20 100/57 98 Room Air We will perform diagnostic labs, and administer medications according to the patient's complaint. Once the results are available, will review and personally interpreted the labs to rule out any acute life-threatening emergency the trach require immediate intervention and treatment. I will then re-evaluate the patient after treatment and diagnostic exams have return to determine whether the patient requires any further testing, can safely be discharged home or need further admission to hospital for additional treatment and evaluation. Medical Decision Making MDM Differential diagnosis: Musculoskeletal, UTI, constipation stretching from gravid uterus This is a 29-year-old female who is 4 comes in with a lower abdominal pain and back pain for the past 24 hours. She was noted to be playing with her child in no distress in the triage area as well as in the ER. Fever chills or rigors. No vaginal bleeding. No drainage. No nausea vomitings or diarrhea. No history of fall. Temperature 98.1 pulse 107 respirations 20 blood pressure 100/57 with a pulse oximetry of 98% on room air 1:42 a.m. labs [place] [address] hemoglobin 11.6 platelets 143. BNP 7 is with a normal limits Urinalysis is significant for a UTI. I updated her on all the lab test results possibilities and plan of care Patient was given fluids and empiric antibiotic. She was also given pain medication and she will follow up with her OBGYN Rationale: Tests considered and ordered secondary to shared decision making include: Previous outside records reviewed: Old ER visits. Risk of complication and/or morbidity or mortality of patient management: None Medications-Per medication reconciliation Need for hospitalization: Patient does not meet criteria for hospitalization. Need for emergency major/minor surgery: No There are no social concerns with this patient. Prescription drug management Prescriptions will include symptomatic care Patient's prior external medical records from other ER visits were reviewed by me as indicated. Prior testing and results from previous visits were reviewed. Prior tests were taken into account with medical decision making and resource utilization, independent historian/historians were used to obtain complete medical history. I independently interpreted the test that were performed, results were reviewed by me and considered findings on radiology if ordered. Medical management and examination interpretation discussions were had by me with other qualified healthcare professionals as indicated for the patient's care. Problem List Problem List: (1) UTI (urinary tract infection) (2) Low back pain (3) Third trimester (4) 4, currently DX & DISP Disposition: Discharge Departure Impression: Primary Impression: UTI (urinary tract infection) Additional Impressions: Low back pain, Third trimester , 4, currently Condition: Stable Scripts Nitrofurantoin Monohyd/M-Cryst (Macrobid 100 mg Capsule) 100 Mg Capsule 1 CAP PO BID for 7 Days, #14 CAP 0 Refills Prov: AKBAR BHATIA MD 01/01/25 Additional Instructions: Patient and the caregiver have been informed of all the diagnostic tests and the imaging conducted during the today's visit to the emergency room and has verbalized understanding of the results I have personally reviewed and interpreted all diagnostic exams performed here in the ER today as well as the vital signs documented by the nursing staff. The patient is now being discharged to home and should follow up with the primary care physician or the specialist as directed by the ER staff. Referrals: DG UNDERWOOD MD (PCP) AKBAR BHATIA MD Jan 01, 2025 02:45
[2025-01-01] MEDS: 0.9%NACL 1000ML 1,000 ML IV ONE (03:01)
[2025-01-01 03:14] VITALS: BP 95/58; PULSE 98; RESP 18; O2SAT 96
== END 2025-01-01 03:47 | disposition home or self-care (01) ==
LOC: EDH 23:17
DX: O23.42 Unspecified infection of urinary tract in pregnancy, second trimester (principal); N39.0 Urinary tract infection, site not specified; M54.50 Low back pain, unspecified; Z79.899 Other long term (current) drug therapy; Z3A.00 Weeks of gestation of pregnancy not specified
CPT/HCPCS: 99284; 80048; 85025; 87086; 81001; 36415; 96374; 96375; J7030; J0696; J2270